=== PATIENT | male | born 1935 | race Caucasian/White ===

== ENCOUNTER 2017-05-02 15:44 | Inpatient (IN) | payer OTHER, MEDICARE ==
[~2017-05-02] VITALS: Ht 144.8 cm; Wt 63.5 kg
[~2017-05-02 15:44] MED LIST: ALBU-136 IH; ALBU4TAB59 PO; ASPI-1093 PO; AZIT250T3 PO; BECL0.089 INH; BEN50 PO; CALC-744 PO; CHOL20001 PO; CYAN500T8 PO; DEXL60EC5 PO; FINA5TAB1 PO; FURO-570 PO; MONT10TA35 PO; POTA8TER12 PO; SIMV20TA1 PO; SPIMDI INH; TAMS0.4C96 PO; [UNRECOGNIZED DRUG - CODE] PO; [UNRECOGNIZED DRUG - CODE] PO
[2017-05-02 15:49] VITALS: BP 125/42
--- NOTE | 2017-05-02 16:23 | NUR ---
PT PLACED IN OVERFLOW CHAIR.
--- NOTE | 2017-05-02 17:14 | NUR ---
Pt ambulated to bed 5 using a walker.
--- NOTE | 2017-05-02 17:20 | NUR ---
PATIENT PRESENTS TO ED WITH SOB COUGH ANTERIOR CHEST WALL PAIN . PT STATES WHEN HE COUGHS HIS CHEST HURTS . DENIES N/V/D; SKIN IS PINK/WARM/DRY; AAOX4 WITH EVEN AND STEADY GAIT;CRACKLES; HR EVEN AND REGULAR; THIS TIME; PATIENT STATES PAIN OF 0/10 AT THIS TIME; VSS; PATIENT POSITIONED FOR COMFORT; HOB ELEVATED; BEDRAILS UP X2; BED DOWN. ER MD MADE AWARE OF PT STATUS.
--- NOTE | 2017-05-02 17:21 | NUR ---
Patient being evaluated by Dr. Tena at bedside.
--- NOTE | 2017-05-02 17:32 | NUR ---
RT called for treatment.
[2017-05-02] MEDS ORDERED: methylPREDNISolone SS 125 MG in WATER STERILE 2 ML IV ONE (17:35)
[2017-05-02] MEDS ORDERED: NACL 0.9% 1,000 ML IV ONE (17:35)
[2017-05-02] MEDS ORDERED: ALBUTEROL SULFATE/IPRATROPIU 3 ML SOL IH ONE (17:35)
[2017-05-02] MEDS ORDERED: CLINDAMYCIN 900 MG in DEXTROSE 5% 100 ML IV ONE (17:55)
[2017-05-02] MEDS ORDERED: PIPERACILLIN/TAZOBACTAM 3.375 GM in DEXTROSE 5% 50 ML IV ONE (17:55)
[2017-05-02] MEDS ORDERED: PIPERACILLIN/TAZOBACTAM 3.375 GM VIAL IV ONE (18:03)
[2017-05-02] MEDS ORDERED: CLINDAMYCIN 900 MG/6 ML VIAL IV ONE (18:04)
[2017-05-02 18:45] LABS: BASOPHILS # (AUTO) 0.3 K/uL (0.00-0.22); EOSINOPHILS # (AUTO) 0.5 K/uL (0-0.4); EOSINOPHILS % (AUTO) 5.4 % (0.0-4.0); LYMPHOCYTES # (AUTO) 2.3 K/uL (2.0-11.5); LYMPHOCYTES % (AUTO) 27.2 % (20.5-51.1); MEAN CORPUSCULAR HEMOGLOBIN 24 pg (27-31); MEAN CORPUSCULAR HGB CONC 32 g/dL (33-37); MEAN CORPUSCULAR VOLUME 77 fL (80-94); MONOCYTES # (AUTO) 0.9 K/uL (0.8-1.0); MONOCYTES % (AUTO) 10.6 % (1.7-9.3); NEUTROPHILS # (AUTO) 4.4 K/uL (1.8-7.7); PLATELET COUNT (AUTO) 324 K/uL (140-450); RED BLOOD CELL COUNT(AUTO) 5.34 MIL/uL (4.20-6.10); RED CELL DISTRIBUTION WIDTH 20.8 % (11.6-13.7); WHITE BLOOD COUNT (AUTO) 8.4 K/uL (4.8-10.8)
[2017-05-02 18:57] LABS: ANION GAP 12.1 (8-16); CALCIUM 8.6 mg/dL (8.5-10.1); CARBON DIOXIDE 29.2 mmol/L (21-32); CHLORIDE 102 mmol/L (98-107); GLUCOSE 90 mg/dL (74-106); POTASSIUM 3.3 mmol/L (3.5-5.1); SODIUM SERUM 140 mmol/L (136-145); UREA NITROGEN, BLOOD 16 mg/dL (7-18)
[2017-05-02] MEDS ORDERED: ACETAMINOPHEN 325 MG TAB PO PRN (19:05)
[2017-05-02] MEDS ORDERED: LORazepam 2 MG/ML VIAL IVP PRN (19:05)
[2017-05-02] MEDS ORDERED: ONDANSETRON 4 MG/2 ML VIAL IVP PRN (19:05)
[2017-05-02] MEDS ORDERED: AZITHROMYCIN 500 MG in DEXTROSE 5% 250 ML IV SCH (19:05)
[2017-05-02] MEDS ORDERED: MORPHINE SULFATE 2 MG/ML SYR IVP PRN (19:05)
[2017-05-02] MEDS ORDERED: ALBUTEROL 0.083% 2.5 MG/3 ML NEBU IH PRN (19:05)
[2017-05-02 19:11] LABS: ALANINE AMINOTRANSFERASE 27 U/L (12-78); ALBUMIN 3.4 g/dL (3.4-5.0); ALKALINE PHOSPHATASE 87 U/L (46-116); ASPARTATE AMINOTRANSFERASE 32 U/L (15-37); TOTAL BILIRUBIN 0.3 mg/dL (0.0-1.0)
--- NOTE | 2017-05-02 19:21 | NUR ---
Pt transferred to Tele via ROXANA REPORT GIVEN DENA HERNANDEZ
--- NOTE | 2017-05-02 19:25 | NUR ---
Admitted from [facility] with chief complaint of DIFFICULTY BREATHING STARTED THIS MORNING. AN 82 y/o, Male, Appropriate. ALERT AWAKE ORIENTED X4. GREEK-SPEAKING ONLY BUT DAUGHTER IS PRESENT AT BEDSIDE DURING ADMISSION WHO CAN UNDERSTAND AND SPEAK AZERI WELL. INITIAL ASSESSMENT DONE. NO S/S OF RESPIRATORY DISTRESS OR SOB NOTED. NO C/O PAIN OR ANY DISCOMFORT AT THIS TIME. SKIN IS INTACT CLEAN DRY AND WARM TO TOUCH. PLAN OF CARE REVIEWED TO PT AND FAMILY AT BEDSIDE AND VERBALIZED UNDERSTANDING AND NEED TO BE REINFORCED. oriented to call light, bed, phone,television, bathroom, smoking policy, visiting hours, procedures, ID bracelet on. Belongings list checked. CALL LIGHT WITHIN REACH. WILL CONTINUE TO MONITOR.
[2017-05-02 19:41] LABS: PARTIAL THROMBOPLASTIN TIME 30.4 secs (22-35.6); PROTHROMBIN TIME 10.4 secs (10.8-13.4)
[2017-05-02] MEDS: NACL 0.9% 1,000 ML IV SCH (20:04)
[2017-05-02] MEDS ORDERED: cefTRIAXone 1,000 MG VIAL ONE (20:07)
[2017-05-02] MEDS ORDERED: AZITHROMYCIN 500 MG INJ VIAL IV ONE (20:08)
--- NOTE | 2017-05-02 23:56 | NUR ---
2300 MARY FERNANDES COLLECTED SPUTUM FROM PATIENT AND SENT IT TO LAB
[2017-05-03] VITALS: BP 122/71
--- NOTE | 2017-05-03 00:20 | NUR ---
PT IS SLEEPING RIGHT NOW BUT EASILY AROUSABLE. NO S/S OF ANY DISCOMFORT AT THIS TIME. ALL NEEDS ARE ATTENDED. CALL LIGHT WITHIN REACH. WILL CONTINUE TO MONITOR.
[2017-05-03] MEDS: ALBUTEROL 0.083% 2.5 MG/3 ML NEBU IH SCH ×4 (01:03→19:55)
[2017-05-03 04:00] VITALS: BP 126/75
--- NOTE | 2017-05-03 05:15 | NUR ---
AM CARE DONE BY HIMSELF. BED LINEN CHANGED. INSTRUCTED PT TO REPOSITION. KEPT CLEAN AND DRY. CALL LIGHT WITHIN REACH. WILL CONTINUE TO MONITOR.
[2017-05-03 07:13] LABS: BASOPHILS % (AUTO) 0.2 % (0.0-2.0); EOSINOPHILS # (AUTO) 0.1 K/uL (0-0.4); EOSINOPHILS % (AUTO) 0.9 % (0.0-4.0); HEMATOCRIT 40.9 % (36-52); HEMOGLOBIN 13.1 g/dL (12.0-18.0); LYMPHOCYTES # (AUTO) 0.9 K/uL (2.0-11.5); LYMPHOCYTES % (AUTO) 13.9 % (20.5-51.1); MEAN CORPUSCULAR HEMOGLOBIN 25 pg (27-31); MEAN CORPUSCULAR HGB CONC 32 g/dL (33-37); MEAN CORPUSCULAR VOLUME 77 fL (80-94); MONOCYTES # (AUTO) 0.1 K/uL (0.8-1.0); MONOCYTES % (AUTO) 0.8 % (1.7-9.3); NEUTROPHILS # (AUTO) 5.2 K/uL (1.8-7.7); NEUTROPHILS % (AUTO) 84.2 % (42.2-75.2); PLATELET COUNT (AUTO) 312 K/uL (140-450); RED BLOOD CELL COUNT(AUTO) 5.32 MIL/uL (4.20-6.10); WHITE BLOOD COUNT (AUTO) 6.3 K/uL (4.8-10.8)
--- NOTE | 2017-05-03 07:23 | NUR ---
PT HAS NO S/S OF ANY DISCOMFORT. PLAN OF CARE ENDORSE TO STEPHANIE HERNANDEZ AT BEDSIDE FOR CONTINUITY OF CARE.
[2017-05-03 07:24] LABS: ANION GAP 13.4 (8-16); CALCIUM 8.6 mg/dL (8.5-10.1); CARBON DIOXIDE 26.3 mmol/L (21-32); CHLORIDE 104 mmol/L (98-107); GLUCOSE 138 mg/dL (74-106); POTASSIUM 3.7 mmol/L (3.5-5.1); SODIUM SERUM 140 mmol/L (136-145); UREA NITROGEN, BLOOD 15 mg/dL (7-18)
[2017-05-03] MEDS: NACL 0.9% 1,000 ML IV SCH ×2 (07:31→20:01)
[2017-05-03 08:00] VITALS: BP 132/71
--- NOTE | 2017-05-03 08:00 | NUR ---
Pt in room in bed awake @ this time pt has no c/o any pain or discomfort @ this time call light in reach bed in low position wheels locked @ this time nurse continue to monitor pt
--- NOTE | 2017-05-03 08:00 | NUR ---
Patient's Plan of Care was discussed and reviewed with ERIKA BEAL SPARK
--- NOTE | 2017-05-03 09:58 | NUR ---
PATIENT HAS BEEN SCREENED AND CATEGORIZED HIGH NUTRITION RISK. PATIENT WILL BE SEEN WITHIN 1-2 DAYS OF ADMISSION. 05/03/17-05/04/[address]
--- NOTE | 2017-05-03 10:00 | NUR ---
Pt continue to rest @ this time no c/o any discomfort nurse continue to monitor pt
[2017-05-03] MEDS: ENOXAPARIN 40 MG/0.4 ML SYR SUBQ SCH (10:35)
[2017-05-03 12:11] VITALS: BP 121/70
--- NOTE | 2017-05-03 12:30 | NUR ---
FAXED INITIAL REVIEW TO [facility] [phone] PHONE ASHLEY [phone]
[2017-05-03 16:16] VITALS: BP 113/57
--- NOTE | 2017-05-03 16:30 | NUR ---
Pt remain in room in bed resting @ this time no c/o any pain or discomfort this shift all ordereds carried out as ordered no falls or injuries this shift
--- NOTE | 2017-05-03 19:30 | NUR ---
RECEIVED FROM AM RN IN EDGE OF BED SITTING . ABLE TO VERBALIZE NEEDS WELL IN [place]. GOOD AFFECT. CARDIAC MONITORING. NSR 75. AFEBRILE. IVF SITE TO LFA #22 INTACT AND NO INFILTRATION. PT. CARE PLANS FOR THE NIGHT DISCUSSED WITH HIM AND CALL LIGHT WITH IN REACH. RESPIRATORY THERAPIST IN HERE AND HELPED HIM TO LAY DOWN IN BED TO START BREATHING TREATMENT. SUPPLIED WITH NEW SPUTUM CUP FOR COLLECTION. EXPLAINED THAT WE NEED MORE. "OK"
[2017-05-03 20:50] VITALS: BP 108/57
[2017-05-03] MEDS ORDERED: AZITHROMYCIN 500 MG in DEXTROSE 5% 250 ML IV SCH (21:00)
--- NOTE | 2017-05-03 21:42 | NUR ---
SPUTUM SPECIMEN RE-COLLECTED AND SENT TO LABORATORY. COMPLAINED OF NO BM FOR 3 DAYS NOW. GAVE PRUNE JUICE FOR NOW. ABLE TO VERBALIZE NEEDS WELL.
[2017-05-04 00:35] VITALS: BP 116/58
--- NOTE | 2017-05-04 00:41 | NUR ---
DAUGHTER AT BEDSIDE WATCHING OVER HIM .SLEEPING WELL AT THIS TIME. CALL LIGHT WITH IN REACH. NO SOB. NO RESTLESSNESS NOTED. STILL COUGHING INTERMITTENTLY . CARDIAC MONITORING.
[2017-05-04] MEDS: ALBUTEROL 0.083% 2.5 MG/3 ML NEBU IH SCH ×3 (01:47→11:44)
--- NOTE | 2017-05-04 02:40 | NUR ---
SLEEPING WELL. NO COMPLAINTS DONE. DAUGHTER AT BEDSIDE.
--- NOTE | 2017-05-04 04:00 | NUR ---
SLEEPING WELL. NO COMPLAINTS .
[2017-05-04 05:32] VITALS: BP 121/57
[2017-05-04 06:49] LABS: ANION GAP 12.9 (8-16); CALCIUM 8.2 mg/dL (8.5-10.1); CARBON DIOXIDE 25.2 mmol/L (21-32); CHLORIDE 110 mmol/L (98-107); CREATININE 0.9 mg/dL (0.6-1.3); GLUCOSE 87 mg/dL (74-106); POTASSIUM 3.1 mmol/L (3.5-5.1); SODIUM SERUM 145 mmol/L (136-145); UREA NITROGEN, BLOOD 19 mg/dL (7-18)
--- NOTE | 2017-05-04 07:14 | NUR ---
HHN TX GIVEN. GAVE PT SPUTUM CUB AND EXPLAINED TO PT. FAMILY MEMBER AT BEDSIDE. NO SOB OR DISTRESS NOTED. WILL CONTINUE TO MONITOR.
--- NOTE | 2017-05-04 07:15 | NUR ---
RECEIVED FROM SUGEY RN IN STABLE CONDITION. ON ROOM AIR. LEFT HAND PERIPHERAL IV PATENT AND INTACT. ALERT AND ORIENTED TO PERSON AND PLACE. UZBEK SPEAKING ONLY. ABLE TO MAKE HIS NEEDS KNOWN. CALL LIGHT WITHIN REACH. WILL CONTINUE TO MONITOR PATIENT.
--- NOTE | 2017-05-04 07:17 | NUR ---
ENDORSED TO THE NEXT RN FOR CONTINUITY OF CARE. AWAKE AND ALERT. DUGHTER AT BEDSIDE. NO SOB. AFEBRILE. TELEMETRY MONITORING.
[2017-05-04 08:02] VITALS: BP 126/82
[2017-05-04] MEDS: NACL 0.9% 1,000 ML IV SCH (09:34)
[2017-05-04] MEDS: ENOXAPARIN 40 MG/0.4 ML SYR SUBQ SCH (09:35)
--- NOTE | 2017-05-04 10:46 | NUR ---
PATIENT IS RESTING COMFORTABLY AT THIS TIME.
--- NOTE | 2017-05-04 11:47 | NUR ---
PATIENT DESATURATED AT THIS TIME AT 85% ROOM AIR. PATIENT LAYS FLAT ON BED. NOT IN DISTRESS. RT MADE AWARE. PULLED UP ON SITTING POSITION, O2 SAT WENT UP TO 94% ON ROOM AIR.
[2017-05-04 11:58] VITALS: BP 116/64
--- NOTE | 2017-05-04 12:23 | NUR ---
FAXED CONCURRENT REVIEW TO [facility] [phone] PHONE ASHLEY [phone]
[2017-05-04 13:27] VITALS: BP 116/64
[2017-05-04] MEDS ORDERED: POTASSIUM CHLORIDE 20% 40 MEQ/15 ML UDC PO SCH (13:48)
--- NOTE | 2017-05-04 13:53 | NUR ---
05/04/17 RD INITIAL ASSESSMENT COMPLETED PLEASE REFER TO NUTRITION ASSESSMENT UNDER CARE ACTIVITY FOR ESTIMATED NUTRITIONAL NEEDS. 1. CONTINUE REGULAR, PUREED DIET 2. RD TO FOLLOW-UP 3-5 DAYS; MODERATE RISK HUYEN GONZALEZ RD
--- NOTE | 2017-05-04 15:18 | NUR ---
D/C PATIENT IN STABLE CONDITION. IV PULLED OUT, TIP INTACT. ARM BAND REMOVED. D/C INSTRUCTIONS GIVEN TO PATIENT'S DAUGHTER AND ALL D/C PAPER WORKS WERE SIGNED. WHEELED OUT TO FRONT LOBBY. D/C VIA PRIVATE AUTO.
== END 2017-05-04 15:10 | disposition home or self-care (01) | DRG 140 ==
LOC: MED 15:44 → MTU 19:06
PROVIDERS: ADMIT Hospitalist; ATTEND Hospitalist
DX: J44.0 Chronic obstructive pulmonary disease with (acute) lower respiratory infection (principal); J18.9 Pneumonia, unspecified organism; R13.10 Dysphagia, unspecified; J98.4 Other disorders of lung; J44.1 Chronic obstructive pulmonary disease with (acute) exacerbation; E78.5 Hyperlipidemia, unspecified; E87.6 Hypokalemia; K21.9 Gastro-esophageal reflux disease without esophagitis; N40.0 Benign prostatic hyperplasia without lower urinary tract symptoms; I10 Essential (primary) hypertension; Z87.891 Personal history of nicotine dependence; Z87.11 Personal history of peptic ulcer disease; Z90.49 Acquired absence of other specified parts of digestive tract; Z79.899 Other long term (current) drug therapy
CPT/HCPCS: 36415; 71010; 74220; 80048; 80053; 83735; 84484; 85025; 85610; 85730; 87040; 87070; 87081; 87205; 93005; 94640; 96365; 96375; 99285; J0456; J0696; J1650; J2543; J2930; J3490; J7030; J7060; J7613; J7620

== ENCOUNTER 2017-09-17 20:36 | Emergency (ER) | payer MEDICARE, OTHER ==
[~2017-09-17] VITALS: Ht 144.8 cm; Wt 66.3 kg
[~2017-09-17 20:36] MED LIST changes: +ALBU4TAB21 PO; -ALBU4TAB59 PO; -AZIT250T3 PO; +DEXL60EC PO; -DEXL60EC5 PO
[2017-09-17 20:47] VITALS: BP 131/80
--- NOTE | 2017-09-17 21:54 | NUR ---
PT TAKEN TO BED 12
--- NOTE | 2017-09-17 21:56 | NUR ---
82/M BIB DAUGHTER C/O 08/30 SHARP PAIN TO BACK, CONSTANT, SEVERE X 3 DAYS. PT WAS SEEN AT [facility] 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 RX FOR TYLENOL AND IBUPROFEN, BUT WAS NOT FILLED. PT REPORTS HE TOOK IBUPROFEN OTC AT 1400 WITH NO RELIEF. BACK IS TENDER TO TOUCH. NO ACUTE RESPIRATORY DISTRESS NOTED AT THIS TIME. PT POSITIONED FOR COMFORT. ER MD MADE AWARE OF PT STATUS.
--- NOTE | 2017-09-17 22:19 | NUR ---
Dr. Betancourt evaluating patient at bedside.
[2017-09-17] MEDS ORDERED: MORPHINE SULFATE 10 MG/ML SYR IM ONE (22:25)
--- NOTE | 2017-09-17 22:25 | NUR ---
PT PLACE ON BEDSIDE MONITORING WITH CONTINUOUS PULSE OXIMETRY
--- NOTE | 2017-09-17 23:34 | NUR ---
PT RESTING COMFORTABLY, VSS, REPORTS 2/10 PAIN TO BACK. ALL NEEDS MET AT THIS TIME
--- NOTE | 2017-09-18 | NUR ---
Patient discharged with v/s stable. Written and verbal after care instructions given and explained BY DR FERNANDEZ. Patient alert, oriented and verbalized understanding of instructions. Wheel Chair Assisted with MILLICENT HERNANDEZ to car. All questions addressed prior to discharge. ID band removed. Patient advised to follow up with PMD. Opportunity to ask questions provided and answered.
[2017-09-18 00:14] VITALS: BP 139/71
== END 2017-09-18 | disposition home or self-care (01) ==
LOC: MED 20:36
DX: M80.88XA Other osteoporosis with current pathological fracture, vertebra(e), initial encounter for fracture (principal); J44.9 Chronic obstructive pulmonary disease, unspecified; K21.9 Gastro-esophageal reflux disease without esophagitis; I10 Essential (primary) hypertension
CPT/HCPCS: 96372; 99283; J2270

== ENCOUNTER 2017-09-21 20:34 | Inpatient (IN) | payer OTHER, MEDICARE ==
[~2017-09-21] VITALS: Ht 149.9 cm; Wt 64.9 kg
--- NOTE | 2017-09-21 20:37 | NUR ---
PT TAKEN TO BED 12
[2017-09-21 20:41] VITALS: BP 128/96
--- NOTE | 2017-09-21 20:44 | NUR ---
Patient being evaluated by physician at bedside , WITH ORDERS AND CARRIED OUT.
[2017-09-21] MEDS ORDERED: NACL 0.9% 1,000 ML IV ONE (20:45)
[2017-09-21] MEDS ORDERED: fentaNYL 0.05 MG/ML VIAL IVP ONE (20:55)
--- NOTE | 2017-09-21 20:55 | NUR ---
BIBA C/O LOW BACK PAIN, S/P FALL 2-3 DAYS AGO. PATIENT ALERT , AWAKE
--- NOTE | 2017-09-21 20:56 | NUR ---
PT TAKEN TO RADIOLOGY
--- NOTE | 2017-09-21 21:07 | NUR ---
PT RETURN FROM RADIOLOGY
[2017-09-21 21:25] LABS: HEMOGLOBIN 13.5 g/dL (12.0-18.0); MEAN CORPUSCULAR HEMOGLOBIN 27 pg (27-31); MEAN CORPUSCULAR HGB CONC 33 g/dL (33-37); MEAN CORPUSCULAR VOLUME 81 fL (80-94); PLATELET COUNT (AUTO) 408 K/uL (140-450); RED BLOOD CELL COUNT(AUTO) 5.05 MIL/uL (4.20-6.10); RED CELL DISTRIBUTION WIDTH 20.6 % (11.6-13.7); WHITE BLOOD COUNT (AUTO) 18.5 K/uL (4.8-10.8)
[2017-09-21 21:41] LABS: PROTHROMBIN TIME 10.1 secs (10.8-13.4)
[2017-09-21 21:42] LABS: EOSINOPHILS % (MANUAL) 1 % (0-4); LYMPHOCYTES % (MANUAL) 4 % (20-46); MONOCYTES % (MANUAL) 4 % (5-12); PROMYELOCYTES % 2 % (0-0)
[2017-09-21 21:43] LABS: ALBUMIN 2.8 g/dL (3.4-5.0); ANION GAP 12.4 (8-16); ASPARTATE AMINOTRANSFERASE 33 U/L (15-37); CARBON DIOXIDE 27.7 mmol/L (21-32); CHLORIDE 91 mmol/L (98-107); CREATININE 0.9 mg/dL (0.7-1.3); GLUCOSE 161 mg/dL (74-106); POTASSIUM 4.1 mmol/L (3.5-5.1); SODIUM SERUM 127 mmol/L (136-145); TOTAL BILIRUBIN 0.6 mg/dL (0.0-1.0); UREA NITROGEN, BLOOD 17 mg/dL (7-18)
[2017-09-21] MEDS ORDERED: PIPERACILLIN/TAZOBACTAM 3.375 GM in DEXTROSE 5% 50 ML IV ONE (21:50)
--- NOTE | 2017-09-21 22:00 | NUR ---
PER ER MD ORDERS WITT 16 FR INSERTED. PT TOLERATED WELL. 1400ML OUTPUT NOTED. ER MD MADE AWARE.
--- NOTE | 2017-09-21 22:00 | NUR ---
ALL RESULTS BACK AND NOTED BY ERMD AND FOR ADMISSION
[2017-09-21] MEDS ORDERED: PIPERACILLIN/TAZOBACTAM 3.375 GM VIAL IV ONE (22:06)
[2017-09-21 22:07] LABS: APPEARANCE,URINE CLEAR (CLEAR); BILIRUBIN,URINE NEGATIVE (NEGATIVE); BLOOD, URINE NEGATIVE (NEGATIVE); COLOR,URINE YELLOW (YELLOW); LEUKOCYTE ESTERASE ,URINE NEGATIVE (NEGATIVE); NITRITE, URINE NEGATIVE (NEGATIVE); UGLUCOSE NEGATIVE (NEGATIVE)
[2017-09-21] MEDS ORDERED: ONDANSETRON 4 MG/2 ML VIAL IM/IVP PRN (22:10)
[2017-09-21] MEDS ORDERED: HYDROcodone/APAP 7.5/325 MG 1 TAB PO PRN (22:10)
[2017-09-21] MEDS ORDERED: MORPHINE SULFATE 2 MG/ML SYR IVP PRN ×2 (22:10→22:25)
[2017-09-21] MEDS ORDERED: DOCUSATE SODIUM 100 MG GELCAP PO PRN (22:10)
[2017-09-21] MEDS ORDERED: ACETAMINOPHEN 325 MG TAB PO PRN ×2 (22:10→22:25)
[2017-09-21] MEDS ORDERED: TRAM50TA1 PO (22:18)
[2017-09-21] MEDS ORDERED: NACL 0.9% 1,000 ML IV SCH (22:24)
[2017-09-21] MEDS ORDERED: ONDANSETRON 4 MG/2 ML VIAL IVP PRN (22:25)
[2017-09-21] MEDS ORDERED: AZITHROMYCIN 500 MG in DEXTROSE 5% 250 ML IV SCH (22:25)
[2017-09-21] MEDS ORDERED: LORazepam 2 MG/ML VIAL IVP PRN (22:25)
--- NOTE | 2017-09-21 22:27 | NUR ---
Patient will be admitted to care of DR. TELLEZ. Admited to TELEMETRY. Will go to room 122 B Belongings list completed.
--- NOTE | 2017-09-21 22:33 | NUR ---
REPORT GIVEN TO [facility] RN.
--- NOTE | 2017-09-21 22:45 | NUR ---
ADMITTED PATIENT TO THE TELE UNIT, PATIENT AWAKE ALERT ORIENTED TO PERSON, PLACE AND YEAR. ROMANSH SPEAKING ONLY, AND DAUGHTER AT BEDSIDE. TELE MONITOR PLACED ON PATIENT, IV PATENT AND INTACT. WITT CATHETER IN PLACE, DRAINING URINE BY GRAVITY. CALL LIGHT WITHIN REACH, SAFETY MEASURE ENSURED, WILL CONTINUE TO MONITOR.
[2017-09-21 23:00] VITALS: BP 137/71
[2017-09-21] MEDS ORDERED: cefTRIAXone 500 MG VIAL ONE (23:15)
[2017-09-21] MEDS ORDERED: AZITHROMYCIN 500 MG INJ VIAL IV ONE (23:19)
--- NOTE | 2017-09-21 23:37 | NUR ---
ROCEPHIN 1000MG GIVEN ORDERED. PATIENT TOLERATED WELL. WILL CONTINUE TO MONITOR.
--- NOTE | 2017-09-22 00:30 | NUR ---
PATIENT SPEAKS SERBIAN ONLY, TAPPER BALANCE WHEEL SCREW HOLE [id number] USED WHEN ADMISSION QUESTIONS WERE ASKED, HOWEVER, PATIENT WAS FORGETFUL AND UNABLE TO ANSWER QUESTIONS PROPERLY, HIS DAUGHTER WAS THE PRIMARY CAREGIVER AND OFFERED TO ANSWER QUESTIONS WITH PATIENT'S PERMISSION. INFORMATION WAS COLLECTED FROM THE PATIENT AND THE DAUGHTER.
[2017-09-22] MEDS: HYDROcodone/APAP 5/325 MG 1 TAB TAB PO PRN ×2 (00:56→18:08)
--- NOTE | 2017-09-22 03:26 | NUR ---
PATIENT IS SLEEPING AT THIS TIME. NO S/S OF ACUTE DISTRESS NOTED, RESPIRATION EVEN AND UNLABORED, CALL LIGHT WITHIN REACH, SAFETY MEASURE ENSURED, WILL CONTINUE TO MONITOR.
--- NOTE | 2017-09-22 04:32 | NUR ---
PATIENT IS MED-SURG.
[2017-09-22] MEDS: HYDROmorphone 1 MG/ML AMP IVP PRN ×2 (05:12→14:11)
--- NOTE | 2017-09-22 05:15 | NUR ---
PATIENT STATED LOWER BACK PAIN 04/30, BP 113/61, HR 65, DILAUDID 1MG GIVEN ORDERED.
[2017-09-22] MEDS ORDERED: INFLUENZA VIRUS VACCINE QUAD 0.5 ML SYR IMVAC PRN (05:30)
[2017-09-22] MEDS ORDERED: PNEUMOCOCCAL VACCINE 23 MCG/0.5 ML VIAL IMVAC PRN (05:30)
[2017-09-22] MEDS ORDERED: MILD SOAP AND WATER TP PRN (06:05)
[2017-09-22] MEDS ORDERED: Z-GUARD PASTE TP PRN (06:05)
[2017-09-22 06:12] LABS: BASOPHILS # (AUTO) 0.2 K/uL (0.00-0.22); BASOPHILS % (AUTO) 1.8 % (0.0-2.0); EOSINOPHILS # (AUTO) 0.2 K/uL (0-0.4); EOSINOPHILS % (AUTO) 1.1 % (0.0-4.0); HEMATOCRIT 35.6 % (36-52); HEMOGLOBIN 12.1 g/dL (12.0-18.0); LYMPHOCYTES # (AUTO) 0.9 K/uL (2.0-11.5); LYMPHOCYTES % (AUTO) 6.7 % (20.5-51.1); MEAN CORPUSCULAR HEMOGLOBIN 28 pg (27-31); MEAN CORPUSCULAR HGB CONC 34 g/dL (33-37); MEAN CORPUSCULAR VOLUME 82 fL (80-94); MONOCYTES # (AUTO) 1.7 K/uL (0.8-1.0); NEUTROPHILS # (AUTO) 10.8 K/uL (1.8-7.7); NEUTROPHILS % (AUTO) 78.4 % (42.2-75.2); PLATELET COUNT (AUTO) 352 K/uL (140-450); RED BLOOD CELL COUNT(AUTO) 4.38 MIL/uL (4.20-6.10); RED CELL DISTRIBUTION WIDTH 20.5 % (11.6-13.7)
[2017-09-22 06:38] LABS: ANION GAP 8.4 (8-16); CARBON DIOXIDE 25.5 mmol/L (21-32); CHLORIDE 97 mmol/L (98-107); CREATININE 0.7 mg/dL (0.7-1.3); GLUCOSE 102 mg/dL (74-106); POTASSIUM 3.9 mmol/L (3.5-5.1); SODIUM SERUM 127 mmol/L (136-145); UREA NITROGEN, BLOOD 13 mg/dL (7-18)
--- NOTE | 2017-09-22 06:53 | NUR ---
PATIENT IS SLEEPING, EASY TO AROUSE, NO S/S OF ACUTE DISTRESS NOTED, RESPIRATION EVEN AND UNLABORED, CALL LIGHT WITHIN REACH, SAFETY MEASURE ENSURED, WILL CONTINUE TO MONITOR.
--- NOTE | 2017-09-22 07:20 | NUR ---
ENDORSED PLAN OF CARE TO DAY MARY SAMUEL, PATIENT IS IN STABLE CONDITION. NO S/S OF DISTRESS.
[2017-09-22 07:22] LABS: WHITE BLOOD COUNT (AUTO) 13.8 K/uL (4.8-10.8)
--- NOTE | 2017-09-22 07:23 | NUR ---
RECEIVED PT IN BED. ASLEEP. AROUSABLE TO VOICE. ALERT ORIENTEDX4. NO SOB NOTED. DENIES ANY PAIN PAIN OR DISCOMFORT AT THIS TIME. NO SIGNS AND SYMPTOMS OF ACUTE PAIN OR DISCOMFORT NOTED AT THIS TIME. PT ON BEDREST. WITT CATHETER IN PLACE, DRAINING CLEAR YELLOW URINE. SAFETY PRECAUTION IN PLACE. CALL LIGHT WITHIN REACH.
[2017-09-22 08:00] VITALS: BP 144/70
--- NOTE | 2017-09-22 08:04 | NUR ---
DR. CAO MADE AWARE OF SODIUM LEVEL STILL LOW AT 127, PT'S LAST BOWEL MOVEMENT SEP 17, 2017, AND NOT TOLERATING WELL REGULAR DIET DUE TO PT DOES NOT HAVE TEETH. WITH ORDERS MADE AND CARRIED OUT TORB.
[2017-09-22] MEDS: DOCUSATE SODIUM 100 MG GELCAP PO SCH ×2 (08:18→21:11)
[2017-09-22] MEDS: POLYETHYLENE GLYCOL 17 GM/PKT PO PRN (08:18)
[2017-09-22] MEDS: ENOXAPARIN 40 MG/0.4 ML SYR SUBQ SCH (08:18)
[2017-09-22] MEDS: NACL 0.9% 1,000 ML IV SCH ×2 (09:00→10:54)
--- NOTE | 2017-09-22 09:05 | NUR ---
PATIENT HAS BEEN SCREENED AND CATEGORIZED HIGH NUTRITION RISK. PATIENT WILL BE SEEN WITHIN 1-2 DAYS OF ADMISSION. 09/22/17 -09/23/[address]
--- NOTE | 2017-09-22 09:10 | NUR ---
WOUND CARE EVALUATION NOTE: REASON FOR EVALUATION: SKIN RASH COMPLETE SKIN ASSESSMENT DONE ON THIS 82 Y/O MALE PATIENT FROM [facility] TO [facility], WITH INITIAL DIAGNOSIS OF LOWER BACK PAIN AND RIGHT KNEE PAIN. NO SIGNIFICANT PAST MEDICAL HISTORY. ALL ABOVE INFORMATION WAS OBTAINED FROM THE ADMISSION H&P. LABS ARE WBC 13.8, H/H 12.1/35.6, GLUCOSE 102, ALBUMIN 2.8, PT/INR 10.1/1.0 AND PTT 31.9. CURRENT MEDS INCLUDE ARITHROMYCIN,CEFTRIAXONE, ENOXAPARIN, ALBUTEROL AND HYDROMORPHONE . PATIENT IS AWAKE, ORIENTED TO PERSON, PLACE, DATE AND TIME. SKIN WARM TO TOUCH WNL, TOENAILS ARE SHORT AND THICKENED, FUNGALLY LOOKING, NO HAIR GROWTH, BLE ARE DRY AND FLAKY, BILATERAL PEDAL PULSES PRESENT. FC 16FR PATENT AND INTACT TO CLEAR YELLOW COLORED URINE IN MODERATE AMOUNT. INITIAL PLAN OF CARE DISCUSSED WITH PRIMARY RN INTEGUMENTARY: UMBILICAL HERNIA WITH OLD HEALED SCAR BELOW UMBILICUS BLE - DRY AND FLAKY COCCYX AND PERIANALS FUNGAL LIKE RASHES 4X3 CM RECOMMENDATIONS: -CLEANSE COCCYX AND PERIANALS FUNGAL LIKE RASHES WITH SOAP AND WATER , PAT DRY AND APPLY ANTIFUNGAL CREAM QD AND JANELLE -APPLY HYDRAGUARD TO BLE QD AND BOILER COVERER -TURN AND REPOSITION PATIENT Q 2H -OFFLOAD BILATERAL HEELS BY PLACING PILLOWS UNDER CALVES AT ALL TIMES, UNLESS OTHERWISE CONTRAINDICATED -PRESSURE REDISTRIBUTION SURFACE THERAPY -KEEP SKIN CLEAN AND DRY AT ALL TIMES. RECOMMENDATIONS DISCUSSED WITH PRIMARY RN WILL FOLLOW UP PATIENT Q7-10 DAY AND PRN. PLEASE CONTACT WOUND CARE NURSE FOR ANY CONCERNS, QUESTIONS AND CHANGES IN SKIN CONDITION.
--- NOTE | 2017-09-22 11:23 | NUR ---
CM NOTE INITIAL REVIEW FAXED TO [facility] [phone] TAYLER RAMIREZ PH# [phone] RECEIVED A CALL FROM [facility] PH# [phone] AND SHE SAID THAT [facility] IS FOLLOWING THIS PATIENT FOR NURSING
[2017-09-22] MEDS: ALBUTEROL 0.083% 2.5 MG/3 ML NEBU INH PRN ×2 (11:26→18:54)
[2017-09-22] MEDS ORDERED: Z-GUARD PASTE TP SCH (13:00)
[2017-09-22] MEDS: HYDRAGUARD CREAM TP SCH (13:51)
[2017-09-22] MEDS: MILD SOAP AND WATER TP SCH (13:52)
[2017-09-22] MEDS: NYSTATIN/TRIAMCINOLONE CRM 15 GM TUBE TP SCH (13:52)
--- NOTE | 2017-09-22 14:10 | NUR ---
DAUGHTER AT BEDSIDE. PER DAUGHTER PT COMPLAINS OF BACK PAIN /. AND WOULD WANT FAST RELIEF MEDICATION FOR SEVERE PAIN. EXPLAINED THAT PT HAS 2 ORDERED PAIN MED ONE IS PO AND THE OTHER ONE IS IV. AND IV WORKS FASTER THAN PO. MEDICATED PRN ORDERED.
[2017-09-22 15:51] VITALS: BP 109/53
[2017-09-22 18:04] VITALS: BP 120/62
--- NOTE | 2017-09-22 18:09 | NUR ---
DAUGHTER AT BEDSIDE ASSISTING PT TO EAT. PUREE DIET TOLERATED WELL.
--- NOTE | 2017-09-22 18:41 | NUR ---
PT KEPT CLEAN, DRY AND COMFORTABLE, NEEDS ATTENDED. WILL ENDORSE TO NEXT SHIFT, PT ON STABLE CONDITION, FOR CONTINUITY OF CARE. NO SOB NOTED. DENIES ANY PAIN OR DISCOMFORT AT THIS TIME. DAUGHTER JUST LEFT.
[2017-09-22] MEDS: ACETYLCYSTEINE 10% (100 MG/ML) 100 MG/ML VIAL INH SCH (18:54)
[2017-09-22] MEDS: BUDESONIDE 0.5 MG/2 ML NEBU INH SCH (18:54)
--- NOTE | 2017-09-22 19:20 | NUR ---
PATIENT REPORT RECEIVED FROM MORNING NURSE. PATIENT IS AWAKE AND ALERT. NO SIGNS AND SYMPTOMS OF DISTRESS NOTED, NO COMPLAINTS OF PAIN AT THIS TIME. IV SITE IS NOTED ON RIGHT AC. WITT CATHETER IN PLACE. BED IN LOWEST POSITION, SIDE RAILS UP AND CALL LIGHT WITHIN REACH. WILL CONTINUE TO MONITOR.
[2017-09-22] MEDS: AZITHROMYCIN 500 MG in DEXTROSE 5% 250 ML IV SCH (21:05)
[2017-09-23] VITALS: BP 110/62
--- NOTE | 2017-09-23 | NUR ---
CHECKED ON PATIENT, PATIENT IS ASLEEP. NO SIGNS AND SYMPTOMS OF DISTRESS NOTED. BED IN LOWEST POSITION, SIDE RAILS UP AND CALL LIGHT WITHIN REACH.
[2017-09-23] MEDS: MILD SOAP AND WATER TP SCH ×2 (01:00→13:05)
--- NOTE | 2017-09-23 03:20 | NUR ---
PATIENT PULLED OUT IV. IV CANNULA INTACT. NEW IV SITE INSERTED ON LEFT FOREARM, GAUGE 22. NEW IV SITE, ASYMPTOMATIC, INTACT, PATENT.
--- NOTE | 2017-09-23 04:00 | NUR ---
CHECKED ON PATIENT, PATIENT IS ASLEEP. NO SIGNS AND SYMPTOMS OF DISTRESS NOTED. BED IN LOWEST POSITION, SIDE RAILS UP AND CALL LIGHT WITHIN REACH.
[2017-09-23 05:45] LABS: HEMATOCRIT 39.7 % (36-52); HEMOGLOBIN 12.9 g/dL (12.0-18.0); MEAN CORPUSCULAR HEMOGLOBIN 27 pg (27-31); MEAN CORPUSCULAR HGB CONC 33 g/dL (33-37); MEAN CORPUSCULAR VOLUME 83 fL (80-94); PLATELET COUNT (AUTO) 424 K/uL (140-450); RED BLOOD CELL COUNT(AUTO) 4.75 MIL/uL (4.20-6.10); RED CELL DISTRIBUTION WIDTH 20.3 % (11.6-13.7); WHITE BLOOD COUNT (AUTO) 17.6 K/uL (4.8-10.8)
[2017-09-23 06:27] LABS: ALBUMIN 2.3 g/dL (3.4-5.0); ASPARTATE AMINOTRANSFERASE 35 U/L (15-37); CARBON DIOXIDE 29.1 mmol/L (21-32); CHLORIDE 97 mmol/L (98-107); CREATININE 0.8 mg/dL (0.7-1.3); GLUCOSE 132 mg/dL (74-106); MAGNESIUM 1.8 mg/dL (1.8-2.4); PHOSPHORUS 2.4 mg/dL (2.5-4.9); POTASSIUM 4.1 mmol/L (3.5-5.1); SODIUM SERUM 131 mmol/L (136-145); TOTAL BILIRUBIN 0.4 mg/dL (0.0-1.0); UREA NITROGEN, BLOOD 12 mg/dL (7-18)
[2017-09-23 07:01] LABS: LYMPHOCYTES % (MANUAL) 10 % (20-46); MONOCYTES % (MANUAL) 5 % (5-12)
[2017-09-23] MEDS: ALBUTEROL 0.083% 2.5 MG/3 ML NEBU INH PRN ×3 (07:08→19:25)
[2017-09-23] MEDS: BUDESONIDE 0.5 MG/2 ML NEBU INH SCH ×2 (07:08→19:25)
[2017-09-23] MEDS: ACETYLCYSTEINE 10% (100 MG/ML) 100 MG/ML VIAL INH SCH ×2 (07:09→19:25)
--- NOTE | 2017-09-23 07:27 | NUR ---
PATIENT REPORT GIVEN AT BEDSIDE TO MORNING NURSE. PATIENT IS IN STABLE CONDITION
--- NOTE | 2017-09-23 07:30 | NUR ---
RECEIVED REPORT FROM POWDER MIXER NURSE PT IS RESTING IN BED, RECEIVING BREATHING TREATMENT AT THIS TIME, PT IS A/OX3, BEDREST, IV IS ON THE LEFT AC, PATENT, INTACT, FLUSHING WELL, PT HAS ERYTHEMA ON HIS BUTTOCKS, WITT CATHETER IS IN PLACE, ABDOMEN IS NOTED TO BE DISTENDED, NO S/S OF RESPIRATORY DISTRESS OR DISCOMFORT NOTED, DISCUSSED PLAN OF CARE WITH PT, PT VERBALIZED UNDERSTANDING, SAFETY/FALL/ASPIRATION PRECAUTIONS ARE IN PLACE, CALL LIGHT WITHIN REACH, WILL CONTINUE TO MONITOR.
[2017-09-23 08:00] VITALS: BP 134/72
[2017-09-23] MEDS: DOCUSATE SODIUM 100 MG GELCAP PO SCH ×2 (08:45→20:40)
--- NOTE | 2017-09-23 08:45 | NUR ---
DUE MEDICATIONS GIVEN PT TOLERATED WELL, CALL LIGHT WITHIN REACH, WILL CONTINUE TO MONITOR.
[2017-09-23] MEDS: ENOXAPARIN 40 MG/0.4 ML SYR SUBQ SCH (08:49)
--- NOTE | 2017-09-23 11:15 | NUR ---
PT IS REPOSITIONED IN BED FOR COMFORT AT THIS TIME.
--- NOTE | 2017-09-23 11:48 | NUR ---
CM NOTE CONCURRENT REVIEW FAXED TO [facility] [phone] TAYLER RAMIREZ PH# [phone]. SPOKE WITH [facility] TAYLER RAMIREZ PH# [phone] AND SHE SAID TO SEND INQUIRY TO [facility] IF PATIENT NEEDS SNF AND FOR TRANSPORT TO SNF AMBULANCE AUTH# [id number]. SPOKE WITH TY OF [facility] PH# [phone] AND SHE SAID THAT THEY CAN TAKE PATIENT IF PATIENT NEEDS TO GO TO SNF.
--- NOTE | 2017-09-23 12:30 | NUR ---
PATIENT'S DAUGHTER (ZEFERINO) IS AT PATIENT'S BEDSIDE AT THIS TIME.
--- NOTE | 2017-09-23 12:50 | NUR ---
09/23/17 RD INITIAL ASSESSMENT COMPLETED PLEASE REFER TO NUTRITION ASSESSMENT UNDER CARE ACTIVITY FOR ESTIMATED NUTRITIONAL NEEDS. 1. CONTINUE PUREE DIET TOLERATED PER MD 2. CONTINUE TO ENCOURAGE INCREASED PO INTAKE --NOTE PT MEETING 100% OF NUTRITIONAL NEEDS WITH CURRENT INTAKE. 3. RD TO FOLLOW-UP 3-5 DAYS, MODERATE RISK HETAL FITZGERALD RD
[2017-09-23] MEDS: HYDRAGUARD CREAM TP SCH (13:04)
[2017-09-23] MEDS: NYSTATIN/TRIAMCINOLONE CRM 15 GM TUBE TP SCH (13:07)
--- NOTE | 2017-09-23 13:15 | NUR ---
THROUGH HORSERADISH MAKER, MARIO HERNANDEZ. PATIENT AND DAUGHTER IN AGREEMENT TO GO TO SNF. THE DAUGHTER WANTS [facility] SINCE HER FATHER WAS THERE BEFORE. FAXED INQUIRY TO [facility]. I CALLED ASHLEY FROM [facility] AND INFORMED HER. ASHLEY SAID THE AUTH FOR OCC WILL BE [id number]. AUTH FOR [facility]SP[facility] IS [id number]. FROM RAIZA FROM [facility]. THE PATIENT CAN GO TO ROOM UPON DISCHARGE. CALL [phone]. Addendum: 09/23/17 at 1325 by Ronda Kohler CM PATIENT TO GO TO [facility] UPON DISCHARGE UNDER DR. Anna JOHN.
[2017-09-23] MEDS: HYDROcodone/APAP 5/325 MG 1 TAB TAB PO PRN (13:41)
--- NOTE | 2017-09-23 14:07 | NUR ---
CALLED RT TO REQUEST A BREATHING TREATMENT FOR THE PATIENT. I LET THEM KNOW THE PATIENT STATED HE WAS FEELING SHORT OF BREATH AT THIS TIME.
--- NOTE | 2017-09-23 14:11 | NUR ---
RESPIRATORY THERAPY IS AT PATIENT'S BEDSIDE AT THIS TIME.
--- NOTE | 2017-09-23 14:30 | NUR ---
PHYSICAL THERAPY WORKING WITH PT AT THIS TIME.
--- NOTE | 2017-09-23 15:35 | NUR ---
PT IS SLEEPING IN BED AT THIS TIME, NO S/S OF RESPIRATORY DISTRESS OR DISCOMFORT NOTED, CALL LIGHT WITHIN REACH.
[2017-09-23 16:00] VITALS: BP 145/71
--- NOTE | 2017-09-23 17:00 | NUR ---
PT SLEEPING IN BED, PATIENT'S DAUGHTER IS AT BEDSIDE, CALL LIGHT WITHIN REACH.
--- NOTE | 2017-09-23 19:17 | NUR ---
ENDORSED PT TO MECHANICAL PROJECT MANAGER NURSE FOR CONTINUITY OF CARE. PT STABLE AT THIS TIME.
--- NOTE | 2017-09-23 19:18 | NUR ---
PATIENT REPORT RECEIVED FROM MORNING NURSE. PATIENT HAVING BREATHING TREATMENT. NO SIGNS AND SYMPTOMS OF DISTRESS NOTED. PATIENT'S DAUGHTER IS AT BEDSIDE. IV SITE NOTED ON LEFT FOREARM, ASYMPTOMATIC, INTACT, PATENT. WITT CATHETER IN PLACE. BED IN LOWEST POSITION, SIDE RAILS UP AND CALL LIGHT WITHIN REACH. WILL CONTINUE TO MONITOR.
[2017-09-23] MEDS: AZITHROMYCIN 500 MG in DEXTROSE 5% 250 ML IV SCH (20:32)
--- NOTE | 2017-09-23 22:30 | NUR ---
CHECKED ON PATIENT. PATIENT IS ASLEEP. NO SIGNS AND SYMPTOMS OF DISTRESS NOTED. BED IN LOWEST POSITION, SIDE RAILS UP AND CALL LIGHT WITHIN REACH. WILL CONTINUE TO MONITOR.
[2017-09-24] VITALS: BP 132/60
[2017-09-24] MEDS: MILD SOAP AND WATER TP SCH ×2 (01:59→12:48)
[2017-09-24 05:34] LABS: HEMATOCRIT 34.2 % (36-52); HEMOGLOBIN 11.7 g/dL (12.0-18.0); MEAN CORPUSCULAR HEMOGLOBIN 28 pg (27-31); MEAN CORPUSCULAR HGB CONC 34 g/dL (33-37); MEAN CORPUSCULAR VOLUME 82 fL (80-94); PLATELET COUNT (AUTO) 391 K/uL (140-450); RED BLOOD CELL COUNT(AUTO) 4.16 MIL/uL (4.20-6.10); RED CELL DISTRIBUTION WIDTH 20.4 % (11.6-13.7); WHITE BLOOD COUNT (AUTO) 19.8 K/uL (4.8-10.8)
[2017-09-24 05:56] LABS: ANION GAP 12.2 (8-16); ASPARTATE AMINOTRANSFERASE 35 U/L (15-37); CARBON DIOXIDE 22.8 mmol/L (21-32); CHLORIDE 100 mmol/L (98-107); CREATININE 0.8 mg/dL (0.7-1.3); GLUCOSE 115 mg/dL (74-106); SODIUM SERUM 131 mmol/L (136-145); TOTAL BILIRUBIN 0.3 mg/dL (0.0-1.0); UREA NITROGEN, BLOOD 16 mg/dL (7-18)
[2017-09-24 06:47] LABS: EOSINOPHILS % (MANUAL) 1 % (0-4); LYMPHOCYTES % (MANUAL) 6 % (20-46); MONOCYTES % (MANUAL) 7 % (5-12)
[2017-09-24] MEDS: ACETYLCYSTEINE 10% (100 MG/ML) 100 MG/ML VIAL INH SCH ×2 (07:21→19:45)
--- NOTE | 2017-09-24 07:21 | NUR ---
PATIENT REPORT GIVEN AT BEDSIDE TO MORNING NURSE. PATIENT IS IN STABLE CONDITION
[2017-09-24] MEDS: BUDESONIDE 0.5 MG/2 ML NEBU INH SCH ×2 (07:22→19:45)
[2017-09-24] MEDS: ALBUTEROL 0.083% 2.5 MG/3 ML NEBU INH PRN ×2 (07:22→19:45)
--- NOTE | 2017-09-24 07:22 | NUR ---
RECEIVED REPORT FROM BOX CAR BRACER NURSE AT BEDSIDE FOR CONTINUITY OF CARE. PT IS AWAKE AND ORIENTED. INTRODUCED SELF AND UPDATED BOARD. NO SIGNS OF DISTRESS. WILL CONTINUE TO MONITOR.
[2017-09-24 08:00] VITALS: BP 127/58
[2017-09-24] MEDS: DOCUSATE SODIUM 100 MG GELCAP PO SCH ×2 (09:39→20:02)
[2017-09-24] MEDS: ENOXAPARIN 40 MG/0.4 ML SYR SUBQ SCH (09:39)
--- NOTE | 2017-09-24 09:45 | NUR ---
ADMINISTERED SCHEDULED MEDS AND COLACE. PT TOLERATED WELL. CLEANED PT, CHANGED GOWN AND LINENS WITH MOLASSES AND CARAMEL OPERATOR. REPOSITIONED PT TO LEFT SIDE. PT IS RESTING COMFORTABLY IN BED NOW. WILL CONTINUE TO MONITOR.
[2017-09-24] MEDS: POLYETHYLENE GLYCOL 17 GM/PKT PO PRN (09:52)
[2017-09-24] MEDS: HYDROcodone/APAP 5/325 MG 1 TAB TAB PO PRN ×2 (09:53→22:32)
--- NOTE | 2017-09-24 09:56 | NUR ---
PT COMPLAINED OF LOWER BACK PAIN 5/10. ADMINISTERED NORCO FOR PAIN. PT STATED HE WAS CONSTIPATED. ADMINISTERED MIRALAX FOR CONSTIPATION. PT TOLERATED MEDS WELL. NO SIGNS OF DISTRESS WILL CONTINUE TO MONITOR.
--- NOTE | 2017-09-24 12:06 | NUR ---
CHECKED ON PT IN ROOM. CNAS IN ROOM REPOSITIONED IN SITTING UP POSITION AND ASSISTING WITH LUNCH. PT DENIES PAIN. WILL CONTINUE TO MONITOR.
[2017-09-24] MEDS: PIPER/TAZO 3.375GM/D5W PREMIX 50 ML IV SCH ×2 (12:46→20:03)
[2017-09-24] MEDS: HYDRAGUARD CREAM TP SCH (12:48)
[2017-09-24] MEDS: NYSTATIN/TRIAMCINOLONE CRM 15 GM TUBE TP SCH (12:49)
[2017-09-24 16:00] VITALS: BP 117/59
--- NOTE | 2017-09-24 16:49 | NUR ---
ADMINISTERED FLU VACCINE IM TO L DELTOID AND PNA VACCINE IM TO R DELTOID. PT TOLERATED WELL. REPOSITIONED PT TO SITTING UP POSITION. HOB ELEVATED AT 30 DEGREES. NO SIGNS OF DISTRESS. WILL CONTINUE TO MONITOR.
--- NOTE | 2017-09-24 17:32 | NUR ---
PHYSICAL THERAPIST WITH PT RIGHT NOW IN ROOM.
--- NOTE | 2017-09-24 18:20 | NUR ---
PT'S DAUGHTER IS AT BEDSIDE. PT WAS DONE EATING DINNER SITTING AT EDGE OF BED ASSISTED BY DAUGHTER. D/C'D WITT CATHETER. TIP INTACT. 100ML URINE NOTED IN DRAINAGE BAG. INSTRUCTED PT AND DAUGHTER USE OF URINAL AND TO USE CALL LIGHT IF NEED OF ASSISTANCE. PT AND DAUGHTER VERBALIZED UNDERSTAND. PLACED URINAL BEDSIDE NEXT TO PT. CALL LIGHT WITHIN REACH. BED ALARM ON AND BED IN LOW POSITION. WILL CONTINUE TO MONITOR.
--- NOTE | 2017-09-24 19:20 | NUR ---
ENDORSED PT TO PLASTIC PANEL INSTALLER NURSE ERASTO AT BEDSIDE FOR CONTINUITY OF CARE. FAMILY AT BEDSIDE. PT IN STABLE CONDITION.
--- NOTE | 2017-09-24 19:25 | NUR ---
RECEIVED REPORT FROM AM NURSE. PT IS SLEEPING, EASY TO AROUSE. ON ROOM AIR. IV ACCESS IS INTACT, PATENT AND ASYMPTOMATIC, SALINE LOCK. NO SIGNS OF ACUTE DISTRESS. SKIN COLOR APPROPRIATE TO ETHNICITY. BED IN LOW POSITION, BILATERAL HALF SIDE RAILS UP, CALL LIGHT WITHIN REACH, WILL CONTINUE TO MONITOR.
[2017-09-24] MEDS: AZITHROMYCIN 500 MG in DEXTROSE 5% 250 ML IV SCH (20:03)
--- NOTE | 2017-09-24 21:32 | NUR ---
PT STATES HE FEELS THE NEED TO VOID, ASSISTED PT WITH USING THE URINAL AND BEDSIDE COMMODE. HOWEVER PT WAS UNABLE TO VOID.
--- NOTE | 2017-09-24 21:33 | NUR ---
PT STATES HE FEELS THE NEED TO VOID, ASSISTED PT WITH USING THE URINAL AND BEDSIDE COMMODE. HOWEVER PT WAS UNABLE TO VOID. INSTRUCTED PT ON THE USE OF URINAL AND TO USE CALL LIGHT IF HE NEEDS ANY ASSISTANCE. BED IN LOW POSITION, BILATERAL HALF SIDE RAILS UP, CALL LIGHT WITHIN REACH, WILL CONTINUE TO MONITOR.
[2017-09-25] VITALS: BP 111/52
--- NOTE | 2017-09-25 00:20 | NUR ---
PT STILL UNABLE TO VOID, PELVIC AREA DISTENDED, BLADDER SCAN PERFORMED WITH 773 ML RESULT, PAGED DR SCOTT (COVERING FOR DR CAO), WITH NEW ORDER, WITT CATHETER INSERTED WITHOUT DIFFICULTY, IMMEDIATE RETURN OF CLEAR LIGHT YELLOW URINE 1,050ML, MONITORED CLOSELY.
[2017-09-25] MEDS: MILD SOAP AND WATER TP SCH ×2 (01:35→13:31)
--- NOTE | 2017-09-25 04:13 | NUR ---
PT IS SLEEPING, EASY TO AROUSE. NO SIGNS OF ACUTE DISTRESS. BED IN LOW POSITION, BILATERAL HALF SIDE RAILS UP, CALL LIGHT WITHIN REACH, WILL CONTINUE TO MONITOR
[2017-09-25] MEDS: PIPER/TAZO 3.375GM/D5W PREMIX 50 ML IV SCH ×2 (05:04→13:36)
[2017-09-25 06:54] LABS: BASOPHILS # (AUTO) 0.1 K/uL (0.00-0.22); BASOPHILS % (AUTO) 0.8 % (0.0-2.0); EOSINOPHILS # (AUTO) 0.2 K/uL (0-0.4); EOSINOPHILS % (AUTO) 1.3 % (0.0-4.0); HEMATOCRIT 28.8 % (36-52); HEMOGLOBIN 9.3 g/dL (12.0-18.0); LYMPHOCYTES # (AUTO) 1.4 K/uL (2.0-11.5); MEAN CORPUSCULAR HEMOGLOBIN 27 pg (27-31); MEAN CORPUSCULAR HGB CONC 32 g/dL (33-37); MEAN CORPUSCULAR VOLUME 82 fL (80-94); MONOCYTES # (AUTO) 1.2 K/uL (0.8-1.0); MONOCYTES % (AUTO) 7.1 % (1.7-9.3); NEUTROPHILS % (AUTO) 82.8 % (42.2-75.2); PLATELET COUNT (AUTO) 453 K/uL (140-450); RED BLOOD CELL COUNT(AUTO) 3.51 MIL/uL (4.20-6.10); RED CELL DISTRIBUTION WIDTH 19.6 % (11.6-13.7)
--- NOTE | 2017-09-25 07:20 | NUR ---
ENDORSED PT TO AM NURSE FOR CONTINUITY OF CARE. PT IN STABLE CONDITION
--- NOTE | 2017-09-25 07:30 | NUR ---
RECEIVED PT ON BED AAOX3-4 WITH PERIODS OF FORGETFULNESS. REORIENTATION PROVIDED. NO SOB NOTED. NO C/O PAIN AT THIS TIME. IV TO LT HAND PATENT AND INTACT. CHEST CLEAR. ABDOMEN SOFT, BOWEL SOUNDS PRESENT. NO EDEMA NOTED. BED ON LOW POSITION, ON BED ALARM. INSTRUCTED PT TO CALL FOR ASSISTANCE, CALL LIGHT WITHIN REACH. PT VERBALIZED UNDERSTANDING.
[2017-09-25] MEDS: ACETYLCYSTEINE 10% (100 MG/ML) 100 MG/ML VIAL INH SCH (07:38)
[2017-09-25] MEDS: ALBUTEROL 0.083% 2.5 MG/3 ML NEBU INH PRN (07:38)
[2017-09-25] MEDS: BUDESONIDE 0.5 MG/2 ML NEBU INH SCH (07:38)
[2017-09-25 07:52] LABS: ALBUMIN 1.8 g/dL (3.4-5.0); ANION GAP 10.4 (8-16); ASPARTATE AMINOTRANSFERASE 43 U/L (15-37); CARBON DIOXIDE 26.4 mmol/L (21-32); CHLORIDE 100 mmol/L (98-107); CREATININE 0.8 mg/dL (0.7-1.3); GLUCOSE 108 mg/dL (74-106); POTASSIUM 3.8 mmol/L (3.5-5.1); SODIUM SERUM 133 mmol/L (136-145); TOTAL BILIRUBIN 0.3 mg/dL (0.0-1.0); UREA NITROGEN, BLOOD 22 mg/dL (7-18)
[2017-09-25 08:00] VITALS: BP 113/62
[2017-09-25 08:04] LABS: WHITE BLOOD COUNT (AUTO) 16.9 K/uL (4.8-10.8)
[2017-09-25] MEDS ORDERED: TAMSULOSIN 0.4 MG CAP PO SCH ×2 (08:30)
--- NOTE | 2017-09-25 09:45 | NUR ---
CXR 2 VIEWS ON GOING AT THE BEDSIDE.
[2017-09-25] MEDS: DOCUSATE SODIUM 100 MG GELCAP PO SCH (10:07)
[2017-09-25] MEDS: HYDROcodone/APAP 5/325 MG 1 TAB TAB PO PRN (10:07)
[2017-09-25] MEDS: ENOXAPARIN 40 MG/0.4 ML SYR SUBQ SCH (10:08)
[2017-09-25] MEDS: HYDRAGUARD CREAM TP SCH (13:31)
[2017-09-25] MEDS: NYSTATIN/TRIAMCINOLONE CRM 15 GM TUBE TP SCH (13:35)
--- NOTE | 2017-09-25 15:51 | NUR ---
CALLED [facility] TO VERIFY THAT PATIENT WILL GO THERE TODAY, SHE SAID PATIENT WILL GO TO ROOM 12B INSTEAD OF 5B. SPOKE TO HIEN FROM [employer] TIME IS 193.
[2017-09-25] MEDS ORDERED: ZOS3.375I IV (15:53)
[2017-09-25] MEDS ORDERED: AZIT500P1 IV (15:55)
[2017-09-25 16:00] VITALS: BP 102/57
--- NOTE | 2017-09-25 18:31 | NUR ---
REPORT GIVEN TO VALERIE-MARY ORNAMENTAL PAINTER AT [facility].
--- NOTE | 2017-09-25 19:00 | NUR ---
PT RESTING. NO SOB NOTED. NO C/O PAIN AT THIS TIME. WILL ENDORSE TO NEXT SHIFT NURSE TO CONTINUE THE DISCAHRGE PROCESS. CHARTER COACH DRIVER TIME AT 1930 HRS FREDRICK.
== END 2017-09-25 19:20 | DRG 139 ==
LOC: MED 20:34 → MERGE 22:27 → MTU 22:27
PROVIDERS: ADMIT Hospitalist; ATTEND Hospitalist
PROC: 3E0234Z Introduction of Serum, Toxoid and Vaccine into Muscle, Percutaneous Approach (ICD-10-PCS; principal; 2017-09-24)
PROC: 3E0234Z Introduction of Serum, Toxoid and Vaccine into Muscle, Percutaneous Approach (ICD-10-PCS; 2017-09-24)
DX: J18.9 Pneumonia, unspecified organism (principal); E43 Unspecified severe protein-calorie malnutrition; N40.0 Benign prostatic hyperplasia without lower urinary tract symptoms; M48.50XA Collapsed vertebra, not elsewhere classified, site unspecified, initial encounter for fracture; W05.0XXA Fall from non-moving wheelchair, initial encounter; Z68.28 Body mass index [BMI] 28.0-28.9, adult; Z87.891 Personal history of nicotine dependence; Y93.89 Activity, other specified; Y99.8 Other external cause status; Y92.129 Unspecified place in nursing home as the place of occurrence of the external cause; Z23 Encounter for immunization
CPT/HCPCS: 36415; 51702; 71010; 71020; 80048; 80053; 81003; 83605; 83735; 84100; 84484; 85025; 85610; 85730; 87040; 87081; 87086; 90658; 90732; 93005; 94640; 96361; 96365; 96375; 97110; 97116; 97530; 99285; J0456; J0696; J1170; J1650; J2060; J2543; J3010; J7030; J7060; J7613; J7626; Q0092

== ENCOUNTER 2017-10-24 23:40 | Inpatient (IN) | payer OTHER, MEDICARE ==
[~2017-10-24] VITALS: Ht 167.6 cm; Wt 57.6 kg
[2017-10-24 23:40] VITALS: BP 103/60
[~2017-10-24 23:40] MED LIST changes: +AZIT500P1 IV; +TRAM50TA1 PO; +ZOS3.375I IV
--- NOTE | 2017-10-24 23:40 | NUR ---
BIBA TO ER BED 1
--- NOTE | 2017-10-24 23:40 | NUR ---
Patient being evaluated by physician at bedside.
[2017-10-24] MEDS ORDERED: NACL 0.9% 1,000 ML IV ONE (23:48)
[2017-10-24 23:59] LABS: HEMATOCRIT 27.5 % (36-52); HEMOGLOBIN 8.5 g/dL (12.0-18.0); MEAN CORPUSCULAR HEMOGLOBIN 24 pg (27-31); MEAN CORPUSCULAR HGB CONC 31 g/dL (33-37); MEAN CORPUSCULAR VOLUME 77 fL (80-94); PLATELET COUNT (AUTO) 321 K/uL (140-450); RED BLOOD CELL COUNT(AUTO) 3.58 MIL/uL (4.20-6.10); WHITE BLOOD COUNT (AUTO) 11.4 K/uL (4.8-10.8)
[2017-10-25] VITALS (9 sets, daily range): BP systolic 90–117; BP diastolic 44–67
--- NOTE | 2017-10-25 | NUR ---
82Y/M PT. BIBA TO ED WITH C/O DIFFICULTY SWALLOWING, LETHARGIC X 2 DAYS. PER EMS PT. FROM SNF, HAVING DIFFICULTY SWALLOWING X 2 DAYS. PT. HTN, BPH, GERD, ASTHMA, COPD. AAO X4, UNABLE TO AMBULATED. RESPIRATIONS ON O2 2LPM VIA NC, EVEN AND UNLABORED, [place] RR24-26, BL LUNG COURSE. O2 SAT 98%. C/O COUGH. SKIN WARM AND DRY. VS, ELEVATED TEMP 100.5, ER MD MADE AWARE OF PT. STATUS.
[2017-10-25 00:15] LABS: PROTHROMBIN TIME 12.1 secs (10.8-13.4)
[2017-10-25 00:17] LABS: LYMPHOCYTES % (MANUAL) 13 % (20-46); MONOCYTES % (MANUAL) 4 % (5-12)
[2017-10-25 00:18] LABS: ALBUMIN 1.9 g/dL (3.4-5.0); ANION GAP 15.5 (8-16); ASPARTATE AMINOTRANSFERASE 36 U/L (15-37); CARBON DIOXIDE 23.9 mmol/L (21-32); CHLORIDE 123 mmol/L (98-107); CREATININE 3.5 mg/dL (0.7-1.3); GLUCOSE 130 mg/dL (74-106); LIPASE 42 U/L (73-393); POTASSIUM 3.4 mmol/L (3.5-5.1); TOTAL BILIRUBIN 0.3 mg/dL (0.0-1.0); UREA NITROGEN, BLOOD 58 mg/dL (7-18)
[2017-10-25 00:21] LABS: SODIUM SERUM 159 mmol/L (136-145)
[2017-10-25] MEDS ORDERED: PIPERACILLIN/TAZOBACTAM 3.375 GM in DEXTROSE 5% 50 ML IV ONE (00:25)
[2017-10-25] MEDS ORDERED: NACL 0.9% 1,000 ML IV ONE (00:25)
[2017-10-25] MEDS ORDERED: LEVOFLOXACIN 750 MG/D5W PREMIX 150 ML IV ONE (00:25)
[2017-10-25 00:42] LABS: APPEARANCE,URINE CLOUDY (CLEAR); BILIRUBIN,URINE NEGATIVE (NEGATIVE); BLOOD, URINE 2+ (NEGATIVE); COLOR,URINE YELLOW (YELLOW); LEUKOCYTE ESTERASE ,URINE 3+ (NEGATIVE); NITRITE, URINE POSITIVE (NEGATIVE); PH,URINE 7.5 (5.0-9.0); UGLUCOSE NEGATIVE (NEGATIVE)
[2017-10-25] MEDS ORDERED: PIPERACILLIN/TAZOBACTAM 3.375 GM VIAL IV ONE (00:48)
[2017-10-25 00:53] LABS: RBC,URINE TOO NUMEROUS TO COUN /HPF (0-5); WBC,URINE TOO MANY TO COUNT /HPF (0-5)
[2017-10-25] MEDS ORDERED: ALBUTEROL 0.083% 2.5 MG/3 ML NEBU IH PRN (01:30)
[2017-10-25] MEDS ORDERED: LEVOFLOXACIN 250 MG/D5 PREMIX 50 ML IV SCH (01:30)
[2017-10-25] MEDS ORDERED: ACETAMINOPHEN 325 MG TAB PO PRN (01:30)
[2017-10-25] MEDS ORDERED: ONDANSETRON 4 MG/2 ML VIAL IVP PRN (01:30)
--- NOTE | 2017-10-25 01:30 | NUR ---
Patient appears to be resting comfortably in bed. Vital Signs within normal limits. Respirations even and unlabored.
[2017-10-25] MEDS ORDERED: NACL 0.9% 1,000 ML IV SCH (01:42)
--- NOTE | 2017-10-25 02:20 | NUR ---
PATIENT REPORT RECEIVED AT BEDSIDE FROM ER NURSE. PATIENT ADMITTED TO THE UNIT. ARRIVED VIA GURNEY. PATIENT IS NON-VERBAL. NODS HEAD YES AND NO TO QUESTIONS. PATIENT IS AWAKE AND ALERT. NO SIGNS AND SYMPTOMS OF DISTRESS NOTED. PATIENT IS ON O2 4L NC. WITT CATHETER IS IN PLACE, 18 [place], DRAINING YELLOW URINE. NOTED SCAB ON RIGHT KNEE. PICTURE TAKEN IN ER. FALL AND SAFETY PRECAUTIONS IN PLACE. BED IN LOWEST POSITION, SIDE RAILS UP AND CALL LIGHT WITHIN REACH. WILL CONTINUE TO MONITOR.
--- NOTE | 2017-10-25 02:25 | NUR ---
Patient will be admitted to care of DR. CAMPOS. Admited to TELEMETRY. Will go to [id number]. Belongings list completed. Report to MARY JAMES.
--- NOTE | 2017-10-25 03:15 | NUR ---
CALLED [facility] AND SPOKE TO EVENING NURSE. NURSE STATED THAT WITT CATHETER WAS INSERTED 2 WEEKS AGO.
--- NOTE | 2017-10-25 03:20 | NUR ---
PATIENT SEEN BY RT. RT STATED IT WAS OK TO PUT PATIENT ON 2L O2 NC, INSTEAD OF 4L. O2 SAT IS AT 97%. PATIENT TOLERATING WELL
--- NOTE | 2017-10-25 03:30 | NUR ---
NOTIFIED DR. CAO OF PATIENT'S POTASSIUM LEVEL OF 3.4, ORDERS RECEIVED. ALSO NOTIFIED DR. CAO OF PATIENTS SODIUM LEVEL OF 159, AND WANTED TO CLARIFY IVF ORDER. SAID TO STILL KEEP HIM ON NORMAL SALINE.
[2017-10-25] MEDS ORDERED: KCL 20 MEQ/WATER INJ PREMIX 100 ML IV ONE (03:40)
[2017-10-25] MEDS ORDERED: PIPERACILLIN/TAZOBACTAM 2.25 GM in DEXTROSE 5% 50 ML IV SCH (05:00)
[2017-10-25] MEDS ORDERED: PIPERACILLIN/TAZOBACTAM 3.375 GM in DEXTROSE 5% 50 ML IV SCH (05:00)
[2017-10-25] MEDS ORDERED: PIPERACILLIN/TAZOBACTAM 2.25 GM VIAL IV ONE (05:42)
[2017-10-25 06:29] LABS: BASOPHILS # (AUTO) 0.1 K/uL (0.00-0.22); BASOPHILS % (AUTO) 0.7 % (0.0-2.0); EOSINOPHILS # (AUTO) 0.2 K/uL (0-0.4); EOSINOPHILS % (AUTO) 1.9 % (0.0-4.0); HEMATOCRIT 25.6 % (36-52); LYMPHOCYTES # (AUTO) 0.9 K/uL (2.0-11.5); LYMPHOCYTES % (AUTO) 8.6 % (20.5-51.1); MEAN CORPUSCULAR HEMOGLOBIN 24 pg (27-31); MEAN CORPUSCULAR HGB CONC 31 g/dL (33-37); MEAN CORPUSCULAR VOLUME 78 fL (80-94); MONOCYTES # (AUTO) 0.5 K/uL (0.8-1.0); MONOCYTES % (AUTO) 5.1 % (1.7-9.3); NEUTROPHILS # (AUTO) 8.7 K/uL (1.8-7.7); NEUTROPHILS % (AUTO) 83.7 % (42.2-75.2); PLATELET COUNT (AUTO) 287 K/uL (140-450); WHITE BLOOD COUNT (AUTO) 10.4 K/uL (4.8-10.8)
[2017-10-25 06:58] LABS: ALBUMIN 1.6 g/dL (3.4-5.0); ANION GAP 11.2 (8-16); ASPARTATE AMINOTRANSFERASE 37 U/L (15-37); CARBON DIOXIDE 25.5 mmol/L (21-32); CHLORIDE 126 mmol/L (98-107); CREATININE 3.1 mg/dL (0.7-1.3); GLUCOSE 109 mg/dL (74-106); POTASSIUM 3.7 mmol/L (3.5-5.1); TOTAL BILIRUBIN 0.3 mg/dL (0.0-1.0); UREA NITROGEN, BLOOD 57 mg/dL (7-18)
--- NOTE | 2017-10-25 07:10 | NUR ---
RECEIVED PATIENT REPORT AT BEDSIDE.PATIENT ASLEEP BUT AROUSABLE. PATIENT AWAKES BUT IS VERY LETHARGIC. LABORED BREATHING NOTED. PATIENT ON 2L O2. O2 SAT 97% AT THIS TIME. WITT CATHETER IN PLACE DRAINING YELLOW URINE. IV LINE NOTED TO THE RIGHT AND LEFT WRISTS. IVF INFUSING WELL IN THE LEFT WRIST IV LINE. PATIENT ON TELE MONITORING. BED LOWERED WITH CALL LIGHT WITHIN REACH. WILL CONTINUE TO MONITOR
[2017-10-25 07:14] LABS: SODIUM SERUM 159 mmol/L (136-145)
--- NOTE | 2017-10-25 07:14 | NUR ---
PATIENT REPORT GIVEN TO MORNING NURSE. PATIENT IS IN STABLE CONDITION
[2017-10-25] MEDS: IPRATROPIUM 0.02% 0.5 MG/2.5 ML NEBU IH SCH ×2 (07:22→13:00)
[2017-10-25] MEDS ORDERED: DEXTROSE 5% 1,000 ML IV SCH (07:55)
--- NOTE | 2017-10-25 08:00 | NUR ---
PATIENT RECEIVING BREATHING TX
--- NOTE | 2017-10-25 08:30 | NUR ---
NOTIFIED DR CAMPOS THAT PATIENT CAN NOT TOLERATE SOFT DIET. ORDERS RECEIVED
--- NOTE | 2017-10-25 09:13 | NUR ---
PATIENT ASLEEP IN BED. NO S/S OF DISTRESS NOTED
--- NOTE | 2017-10-25 10:08 | NUR ---
PATIENT HAS BEEN SCREENED AND CATEGORIZED HIGH NUTRITION RISK. PATIENT WILL BE SEEN WITHIN 1-2 DAYS OF ADMISSION. 10/25/17-10/26/[address]
[2017-10-25] MEDS ORDERED: DEXT 5% / NACL 0.45% 1,000 ML IV SCH (11:00)
--- NOTE | 2017-10-25 11:02 | NUR ---
PATIENT SEEN BY DR SCOTT. ORDERS TO FLUSH THE WITT CATHETER WITH 250ML NS AND CHANGE IVF TO D5 1/2NS
--- NOTE | 2017-10-25 11:03 | NUR ---
NEW 16F WITT CATHETER INSERTED. OUTPUT OF 2400 ML OF DARK YELLOW URINE WITH SEDIMENTS NOTED Addendum: 10/25/17 at 1650 by Diomedes Max RN URINE OUTPUT OF 2000ML NOTED AFTER NEW WITT CATHETER WAS INSERTED. 400 OUTPUT FROM INITIAL WITT CATHETER
--- NOTE | 2017-10-25 12:38 | NUR ---
PATIENT SEEN BY DR CAMPOS
[2017-10-25] MEDS: PIPER/TAZO 2.25GM/D5W PREMIX 50 ML IV SCH ×2 (12:49→20:12)
--- NOTE | 2017-10-25 13:37 | NUR ---
PT HAVING ULTRA SOUND DONE AND FAMILY DOES NOT WANT HHN GIVEN TO PT RIGHT NOW NO SIGNS OF DISTRESS NOTED AT THIS TIME
--- NOTE | 2017-10-25 16:19 | NUR ---
TEMP 101.6 TAKEN ORALLY. COOLING MEASURES IN PLACE. PAGED DR CAMPOS
--- NOTE | 2017-10-25 16:25 | NUR ---
INFORMED DR CAMPOS ABOUT PATIENT'S TEMP AND DROP IN BP. ORDERS RECEIVED
[2017-10-25] MEDS ORDERED: ACETAMINOPHEN 650 MG SUPP RC PRN ×2 (16:30→16:35)
--- NOTE | 2017-10-25 17:02 | NUR ---
* ST PVE NOTE * Clinician encountering nsg staff, family and pt en route from [facility] to ICU 2/2 to pt exhibiting respiratory issues. Nsg thus advising pt is not appropriate for ST evaluation at this time 2/2 to other medical comorbidities, w/ST verbalizing understanding and agreement, stating she may return if MD permits once pt has stabilized medically. PVE Time In/Out 16:45 - 17:00
--- NOTE | 2017-10-25 17:05 | NUR ---
PATIENT TRANSFERRED TO ICU
--- NOTE | 2017-10-25 17:20 | NUR ---
received report from telecommunication equipment repairer at bedside.pt awake, tracks,answers to questions by nodding or shaking head. dr zuñiga at bedside with rt. st/sr on monitor.on 02nc at 2lpm.sob noted. abg ordered by . pt put on bipap 10/25 rate 10 fio2 30%. temp rechecked 99.7.new order received from dr zuñiga.carried out.will continue to closely monitor pt. Addendum: 10/25/17 at 1837 by Korina Desai RN june catheter in place with small amt of yellow urine noted.scab to rt knee also noted with minimal drainage noted.
[2017-10-25] MEDS ORDERED: ALBUMIN HUMAN 25% 50 ML IV SCH (17:38)
[2017-10-25] MEDS: DEXT 5% /NACL 0.9% 1,000 ML IV SCH ×2 (17:51→22:00)
[2017-10-25] MEDS: ALBUTEROL 0.083% 2.5 MG/3 ML NEBU INH SCH ×2 (19:03→22:31)
[2017-10-25] MEDS: IPRATROPIUM 0.02% 0.5 MG/2.5 ML NEBU INH SCH ×2 (19:03→22:31)
[2017-10-25] MEDS: methylPREDNISolone SS 125 MG/2 ML VIAL IVP SCH (20:11)
--- NOTE | 2017-10-25 20:30 | NUR ---
SCHEDULED MEDICATIONS ADMINISTERED. PT TOLERATED WELL. PERIPHERAL IV PATENT AND ASYMPTOMATIC. WILL CONTINUE TO MONITOR PT.
--- NOTE | 2017-10-25 21:35 | NUR ---
RECEIVED REPORT FOR PT. VS STABLE AT THIS TIME. AFEBRILE. ABLE TO NOD TO ANSWER QUESTIONS. AROUSABLE TO NAME. ON BIPAP 12/, RATE 10, AND FIO2 30%. NO SIGNS OF DISTRESS NOTED. SINUS RHYTHM ON MONITOR. PERIPHERAL IV LINES PATENT AND ASYMPTOMATIC. D5 .45 NS RUNNING AT 100ML/HR. CURRENTLY NPO. NO EDEMA NOTED. WITT CATHETER IN PLACE. DRAINING CLEAR, YELLOW URINE. SCD IN PLACE. PT TURNED AND REPOSITIONED. ALL SAFETY PRECAUTIONS IN PLACE. BED AT LOW POSITION. WILL CONTINUE TO CLOSELY MONITOR PT. Addendum: 10/25/17 at 2342 by Christina Begum RN RECEIVED REPORT AT 1930
--- NOTE | 2017-10-25 23:30 | NUR ---
PAGED AT [phone], AND RECEIVED A CALL BACK FROM DR. MOHAN AT [phone]. REPORTED BLOOD CULTURE RESULT. PER NO NEW ORDERS.
[2017-10-26] VITALS (16 sets, daily range): BP systolic 108–133; BP diastolic 50–86
--- NOTE | 2017-10-26 00:25 | NUR ---
VS STABLE AT THIS TIME. NO CHANGE IN CONDITION. PT CURRENTLY ASLEEP. STILL ON BIPAP. ALL SAFETY PRECAUTIONS IN PLACE. CALL LIGHT WITHIN REACH. WILL CONTINUE TO MONITOR.
--- NOTE | 2017-10-26 02:49 | NUR ---
PT DOES NOT APPEAR TO BE IN ANY DISTRESS. VS STABLE. NO CHANGE IN CONDITION. DENIES HAVING ANY PAIN. ALL SAFETY PRECAUTIONS IN PLACE. WILL CONTINUE TO MONITOR PT.
[2017-10-26] MEDS: ALBUTEROL 0.083% 2.5 MG/3 ML NEBU INH SCH ×6 (03:05→23:06)
[2017-10-26] MEDS: IPRATROPIUM 0.02% 0.5 MG/2.5 ML NEBU INH SCH ×6 (03:05→23:06)
[2017-10-26] MEDS: methylPREDNISolone SS 125 MG/2 ML VIAL IVP SCH ×3 (05:12→21:07)
[2017-10-26] MEDS: PIPER/TAZO 2.25GM/D5W PREMIX 50 ML IV SCH ×3 (05:12→21:08)
[2017-10-26 05:26] LABS: HEMATOCRIT 26.4 % (36-52); HEMOGLOBIN 8.2 g/dL (12.0-18.0); MEAN CORPUSCULAR HEMOGLOBIN 24 pg (27-31); MEAN CORPUSCULAR HGB CONC 31 g/dL (33-37); MEAN CORPUSCULAR VOLUME 78 fL (80-94); PLATELET COUNT (AUTO) 275 K/uL (140-450); RED CELL DISTRIBUTION WIDTH 19.5 % (11.6-13.7); WHITE BLOOD COUNT (AUTO) 7.7 K/uL (4.8-10.8)
--- NOTE | 2017-10-26 05:40 | NUR ---
SCHEDULED MEDICATIONS ADMINISTERED. NO CHANGE IN CONDITION AT THIS TIME. WILL CONTINUE TO MONITOR.
[2017-10-26 05:55] LABS: ALBUMIN 1.8 g/dL (3.4-5.0); ANION GAP 13.1 (8-16); ASPARTATE AMINOTRANSFERASE 41 U/L (15-37); CARBON DIOXIDE 23.2 mmol/L (21-32); CHLORIDE 127 mmol/L (98-107); CREATININE 2.5 mg/dL (0.7-1.3); GLUCOSE 216 mg/dL (74-106); MAGNESIUM 1.6 mg/dL (1.8-2.4); PHOSPHORUS 2.9 mg/dL (2.5-4.9); POTASSIUM 3.3 mmol/L (3.5-5.1); TOTAL BILIRUBIN 0.2 mg/dL (0.0-1.0); UREA NITROGEN, BLOOD 42 mg/dL (7-18)
[2017-10-26 06:23] LABS: SODIUM SERUM 160 mmol/L (136-145)
[2017-10-26 06:50] LABS: LYMPHOCYTES % (MANUAL) 2 % (20-46); MONOCYTES % (MANUAL) 1 % (5-12)
--- NOTE | 2017-10-26 07:00 | NUR ---
PAGED AT [phone]. RECEIVED CALL BACK FROM DR. MOHAN. REPORTED CRITICAL SODIUM 160. PER MD CHANGE IV FLUID TO D5W AT 100ML/HR AND TO RECHECK BMP 10/26/17 AT 1500. REPORTED ALSO POTASSIUM LEVEL 3.3; RECEIVED ORDER TO GIVE K-RIDER 40 MEQ X1 TIME. NOTED AND CARRIED OUT.
[2017-10-26] MEDS ORDERED: DEXTROSE 5% 1,000 ML IV SCH ×2 (07:05→11:25)
--- NOTE | 2017-10-26 07:21 | NUR ---
REPORT GIVEN TO MARY SIDDIQUI FOR CONTINUITY OF CARE. PT CURRENTLY IN STABLE CONDITION.
--- NOTE | 2017-10-26 07:22 | NUR ---
RECEIVED REPORT FROM MARY HUERTAS. NO SIGNS OF ACUTE DISTRESS AT THIS TIME, DENIES PAIN. PT IS AAOX1. PT IS ABLE TO TRACK AND NODS TO VERBAL QUESTIONING. PT IS ON BIPAP. I/E: 12/5, RATE: 10, FIO2: 30%. IV TO LEFT HAND #20 AND RIGHT HAND #20 PATENT AND INTACT. SCAB NOTED TO RIGHT KNEE, SKIN IS OTHERWISE INTACT. WITT CATHETER IN PLACE DRAINING TO GRAVITY DRAINAGE BAG. SAFETY PRECAUTIONS IN PLACE WITH BED IN LOWEST POSITION AND SIDE RAILS UP. CALL LIGHT WITHIN REACH. WILL CONTINUE TO MONITOR.
[2017-10-26] MEDS ORDERED: KCL 20 MEQ/WATER INJ PREMIX 200 ML IV SCH (07:30)
--- NOTE | 2017-10-26 07:57 | NUR ---
PAGED DR. CAMPOS REGARDING LOW MAGNESIUM: 1.6. AWAITING CALLBACK.
--- NOTE | 2017-10-26 08:06 | NUR ---
RECEIVED CALLBACK FROM DR. CAMPOS. NEW ORDERS RECEIVED.
--- NOTE | 2017-10-26 08:25 | NUR ---
PT TOLERATED MEDS WELL.
--- NOTE | 2017-10-26 08:31 | NUR ---
PAGED DR. CAMPOS REGARDING LAB RESULT: POSITIVE MRSA NARES. AWAITING CALLBACK.
--- NOTE | 2017-10-26 08:32 | NUR ---
RECEIVED CALLBACK FROM DR. CAMPOS. NEW ORDERS RECEIVED.
--- NOTE | 2017-10-26 08:40 | NUR ---
PT'S DAUGHTER PRESENT AT BEDSIDE.
[2017-10-26] MEDS ORDERED: MAG SULF 2000 MG/WATER PREMIX 50 ML IV SCH (09:00)
--- NOTE | 2017-10-26 09:36 | NUR ---
DR. CAMPOS IN TO SEE PT. WILL FOLLOW UP ON ORDERS.
[2017-10-26] MEDS: MUPIROCIN 2% OINT 22 GM TUBE TP SCH (09:46)
[2017-10-26] MEDS: CHLORHEXADINE GLUC 2% CLOTH TP SCH (09:46)
--- NOTE | 2017-10-26 09:52 | NUR ---
DEEP SUCTIONED PT, OBTAINED THICK YELLOW RED TINGED SECRETIONS
[2017-10-26] MEDS ORDERED: PROBIOTIC SCREEN 1 EA MISC MC PRN (10:45)
[2017-10-26] MEDS ORDERED: LACTOBACILLUS RHAMNOSUS GG 1 EACH CAP PO SCH (11:00)
--- NOTE | 2017-10-26 11:13 | NUR ---
DR. SCOTT IN TO SEE PT. WILL FOLLOW UP ON ORDERS.
[2017-10-26] MEDS ORDERED: HYDROmorphone 1 MG/ML AMP IVP PRN (11:25)
--- NOTE | 2017-10-26 13:06 | NUR ---
DR. SULLIVAN IN TO SEE PT. WILL FOLLOW UP ON ORDERS.
--- NOTE | 2017-10-26 13:08 | NUR ---
PT OFF BIPAP PER DR. GRIFFITH, REQUESTED TO ATTEMPT TO USE BIPAP NOC AND STAY OFF DURING THE DAY TOLERATED. PT PLACED ON 4LNC; JAYSON WELL WITH SAT 99%, HR97 WITHOUT ANY DISTRESS NOTED AT THIS TIME.
--- NOTE | 2017-10-26 13:30 | NUR ---
PT FOUND WITH IV TO RIGHT HAND #20 PULLED UP, CANNULA INTACT. OTHER IV SITE TO LEFT HAND #20 PATENT AND INTACT. WILL CONTINUE TO MONITOR.
--- NOTE | 2017-10-26 13:33 | NUR ---
KADY COELLO, SPEECH THERAPIST, TO FOLLOW UP ON PT'S SWALLOW EVAL.
--- NOTE | 2017-10-26 13:44 | NUR ---
10/26/17 RD INITIAL ASSESSMENT COMPLETED PLEASE REFER TO NUTRITION ASSESSMENT UNDER CARE ACTIVITY FOR ESTIMATED NUTRITIONAL NEEDS. 1. CONTINUE NPO MEDICALLY APPROPRIATE PER MD 2. IF PT PASSES SWALLOW EVALUATION RECOMMEND LOW SODIUM DIET WITH TEXTURE MODIFICATIONS PER SPEECH THERAPIST RECOMMENDATIONS 3. IF PT FAILS SWALLOW EVALUATION RECOMMEND PLACING FEEDING TUBE FOR NUTRITION SUPPORT: NUTREN PULMONARY AT 50 ML/HR GOAL -START AT 10 ML/HR AND ADVANCE 10 ML Q4H TOLERATED TO PREVENT REFEEDING SYNDROME D/T PT WITH POOR PO INTAKE RECENTLY -AT GOAL, THIS WILL PROVIDE 1200 ML TOTAL VOLUME, 1800 KCAL, 82 GM PROTEIN, TO MEET 100% OF PT ESTIMATED KCAL AND PROTEIN NEEDS 4. RD TO FOLLOW-UP 2-3 DAYS, HIGH RISK HETAL FITZGERALD RD
--- NOTE | 2017-10-26 13:49 | NUR ---
14FR NGT INSERTED TO RIGHT NARE, AUSCULTATED AIR BOLUS OVER STOMACH. PT TOLERATED WELL. WILL CONTINUE TO MONITOR.
--- NOTE | 2017-10-26 13:55 | NUR ---
NGT FOUND COILED IN THE BACK OF THE THROAT, REMOVED WITH NO INCIDENT. PT TOLERATED WELL. PT REFUSED REINSERTION.
--- NOTE | 2017-10-26 15:05 | NUR ---
CM NOTE INITIAL REVIEW FAXED TO [facility] / FAX# [phone], ATTN: ASHLEY #[phone]
--- NOTE | 2017-10-26 15:09 | NUR ---
PAGED DR. SULLIVAN REGARDING UNSUCCESSFUL NGT INSERTION AND PT REFUSAL FOR REINSERTION. AWAITING CALLBACK.
--- NOTE | 2017-10-26 15:11 | NUR ---
RECEIVED CALLBACK FROM DR. SULLIVAN. AWARE OF UNSUCCESSFUL NGT INSERTION. NO CHANGE IN ORDERS.
--- NOTE | 2017-10-26 16:15 | NUR ---
SPEECH THERAPIST PRESENT AT BEDSIDE FOR SWALLOW EVAL.
[2017-10-26 16:27] LABS: ANION GAP 15.1 (8-16); CARBON DIOXIDE 22.4 mmol/L (21-32); CHLORIDE 127 mmol/L (98-107); CREATININE 2.2 mg/dL (0.7-1.3); GLUCOSE 164 mg/dL (74-106); POTASSIUM 3.5 mmol/L (3.5-5.1); UREA NITROGEN, BLOOD 38 mg/dL (7-18)
--- NOTE | 2017-10-26 16:29 | NUR ---
* ST NOTE * Pt seen at bedside w/RT present. Pt alert, cooperative and engaged throughout session, reporting no c/o pain at this time. Bedside dysphagia and oral mechanism exams completed. See evaluation report for further details. Pt tolerating 5/5 alternating PO trials of puree apple sauce 3-5 CCs at a time via a spoon, as well as 6/6 alternating PO trials of honey-thick apple juice 3-5 CCs at a time via a spoon, all w/o s/s of aspiration. Pt exhibiting breathy vocal quality potentially 2/2 to respiratory failure as well as demonstrating wheezing during PO intake. Pt and caregiver/nsg education completed regarding safe swallow compensatory strategies pt and caregivers/nsg could utilize to aid pt w/swallow function w/pt and caregivers/nsg verbalizing understanding and agreement w/clinician's recommendations. It is thus recommended pt's PO diet consistency be modified from NPO to PUREE TEXTURES W/HONEY-THICK LIQUIDS FOR ALL MEALS requiring strict aspiration precautions during PO intake, w/pt and caregivers/nsg verbalizing understanding and agreement as well. No further ST follow up recommended at this time. Pt and caregiver/nsg education completed regarding results of evaluation; benefits of abiding by aspiration precautions and recommended PO diet consistency; and prognosis for improvement; with pt and caregivers/nsg verbalizing understanding and agreement. Recommend: - PO diet consistency of PUREE TEXTURES W/HONEY-THICKENED LIQUIDS for all meals - STRICT ASPIRATION PRECAUTIONS 2/2 to respiratory failure - Suction PRN - If pt exhibits s/s of aspiration or choking during PO intake, stop PO intake immediately - Pt requires total assistance w/feeding - Feeder to SIT PT UP @80-90 DEGREE ANGLE DURING PO INTAKE, FEED PT SLOWLY, ALTERNATING BTWN SOLIDS & LIQUIDS, & UTILIZING SMALL BITES/SIPS No further ST follow up recommended at this time. G8996 CK G8997 CJ G8998 CJ NOMS Level 3 Time In/Out 15:55 - 16:25
[2017-10-26 16:32] LABS: SODIUM SERUM 161 mmol/L (136-145)
[2017-10-26] MEDS: DEXTROSE 5% 1,000 ML IV SCH ×2 (17:02→19:25)
--- NOTE | 2017-10-26 17:25 | NUR ---
FAMILY PRESENT AT BEDSIDE.
[2017-10-26] MEDS ORDERED: DEXT 5% / NACL 0.45% 1,000 ML IV SCH (17:30)
--- NOTE | 2017-10-26 19:12 | NUR ---
ENDORSED CARE TO MARY SIDDIQUI. PT IN STABLE CONDITION.
--- NOTE | 2017-10-26 19:30 | NUR ---
ASSUMED CARE OF PT.INITIAL ASSESSMENT COMPLETED.PT AWAKE;ABLE TO FOLLOW SIMPLE COMMANDS.SR ON MONITOR.PERIPHERAL IV TO LT HAND LEAKING,.WILL REINSERT.ON 02NC AT 2LPM/NO SOB NOTED.02 SAT 98%.PT ON REGULAR PUREED DIET.ABLE TO SWALLOW NECTAR CONSISTENCY WATER WITHOUT DIFFICULTY.WITT CATHETER INTACT DRAINING SMALL AMT OF YELLOW URINE.W/SCAB TO RT KNEE.NO DRAINAGE NOTED AT THIS TIME.DENIES PAIN
[2017-10-26] MEDS: FERROUS SULFATE 300 MG/5 ML UDC GT SCH (21:07)
[2017-10-26] MEDS: INSULIN LISPRO SLIDING SCALE 100 UNITS/ML VIAL SUBQ PRN (21:09)
[2017-10-26] MEDS: BLOOD GLUCOSE MONITORING 1 DEV DEV FS SCH (21:10)
--- NOTE | 2017-10-26 22:00 | NUR ---
PT ASLEEP.NO S/SX OF RESP DISTRESS NOTED.WILL CONTINUE TO CLOSELY MONITOR PT
--- NOTE | 2017-10-26 23:12 | NUR ---
PATIENT WOULDOT KEEP HHNTX ON. PT FIGHTS. PT REFUSES MARY SIDDIQUI ALSO. PT REFUSED
[2017-10-27] VITALS (16 sets, daily range): BP systolic 95–145; BP diastolic 39–84
--- NOTE | 2017-10-27 | NUR ---
PHONE CALL TO DR SULLIVAN;NOTIFIED THAT PT BECAME VERY CONFUSED.REMOVING 02 AND PULLING IV; ORDERED BILATERAL SOFT WRIST RESTRAINTS. PHONE CALL TO PTS FAMILY,CALLED ZEFERINO ROJO;PTS DAUGHTER, NO ANSWER,CANT LEAVE A MESSAGE.PHONE CALL MADE TO DELPHINE OLGUIN.EXPLAINED TO HIM THE NEED FOR RESTRAINTS; PHONE CONSENT OBTAINED WITNESSED BY MARY CASTANO.
--- NOTE | 2017-10-27 01:08 | NUR ---
0100 WAS ABLE TO FINISH GIVING HHNTX THAT PT REFUSED EARLIER
--- NOTE | 2017-10-27 01:47 | NUR ---
0140 PLACED PT ON BIPAP
--- NOTE | 2017-10-27 02:00 | NUR ---
PT STILL RESTLESS/CONFUSED. STILL WITH BILATERAL SOFT WRIST RESTRAINTS.NO INJURIES NOTED.NO PAIN NOTED.STILL ON BIPAP
[2017-10-27] MEDS: IPRATROPIUM 0.02% 0.5 MG/2.5 ML NEBU INH SCH ×6 (03:08→23:00)
[2017-10-27] MEDS: ALBUTEROL 0.083% 2.5 MG/3 ML NEBU INH SCH ×6 (03:08→23:00)
[2017-10-27] MEDS: DEXTROSE 5% 1,000 ML IV SCH ×3 (03:15→20:14)
--- NOTE | 2017-10-27 04:29 | NUR ---
PTS CONDITION REMAINS UNCHANGED.STILL ON BIPAP 02SAT 99% AT THIS TIME.NO S/SX OF PAIN NOTED.
[2017-10-27] MEDS: PIPER/TAZO 2.25GM/D5W PREMIX 50 ML IV SCH ×3 (05:15→20:14)
[2017-10-27] MEDS: methylPREDNISolone SS 125 MG/2 ML VIAL IVP SCH ×2 (05:15→12:03)
--- NOTE | 2017-10-27 05:50 | NUR ---
MORNING CARE DONE.PT STILL ON BIPAP.STILL WITH BILATERAL SOFT WRIST RESTRAINTS.NO INJURIES NOTED.
[2017-10-27 06:03] LABS: BASOPHILS # (AUTO) 0.1 K/uL (0.00-0.22); BASOPHILS % (AUTO) 0.9 % (0.0-2.0); EOSINOPHILS # (AUTO) 0.1 K/uL (0-0.4); EOSINOPHILS % (AUTO) 0.7 % (0.0-4.0); HEMATOCRIT 24.2 % (36-52); HEMOGLOBIN 7.6 g/dL (12.0-18.0); LYMPHOCYTES # (AUTO) 0.5 K/uL (2.0-11.5); LYMPHOCYTES % (AUTO) 5.6 % (20.5-51.1); MEAN CORPUSCULAR HEMOGLOBIN 24 pg (27-31); MEAN CORPUSCULAR HGB CONC 31 g/dL (33-37); MEAN CORPUSCULAR VOLUME 76 fL (80-94); MONOCYTES # (AUTO) 0.2 K/uL (0.8-1.0); MONOCYTES % (AUTO) 2.4 % (1.7-9.3); NEUTROPHILS # (AUTO) 7.5 K/uL (1.8-7.7); NEUTROPHILS % (AUTO) 90.4 % (42.2-75.2); PLATELET COUNT (AUTO) 286 K/uL (140-450); RED BLOOD CELL COUNT(AUTO) 3.18 MIL/uL (4.20-6.10); RED CELL DISTRIBUTION WIDTH 19.1 % (11.6-13.7)
[2017-10-27 06:17] LABS: ANION GAP 11.6 (8-16); CARBON DIOXIDE 23.1 mmol/L (21-32); CHLORIDE 123 mmol/L (98-107); CREATININE 1.9 mg/dL (0.7-1.3); GLUCOSE 201 mg/dL (74-106); SODIUM SERUM 155 mmol/L (136-145); UREA NITROGEN, BLOOD 35 mg/dL (7-18)
[2017-10-27 06:25] LABS: POTASSIUM 2.7 mmol/L (3.5-5.1)
[2017-10-27 06:35] LABS: WHITE BLOOD COUNT (AUTO) 8.4 K/uL (4.8-10.8)
--- NOTE | 2017-10-27 07:00 | NUR ---
RECIVED PT ON BIPAP WITH SETTINGS CHARTED BREATH SOUNDS PRESENT BILAT WITH SETTINGS CHARTED PT SEEMS TO BE JAYSON BIPAP WELL AMBU BAG AT BEDSIDE VENT PLUGGED INTO RED OUTLET
[2017-10-27] MEDS ORDERED: KCL 20 MEQ/WATER INJ PREMIX 100 ML IV SCH (07:44)
[2017-10-27] MEDS ORDERED: POTASSIUM CHLORIDE 20% 40 MEQ/15 ML UDC PO SCH (07:44)
--- NOTE | 2017-10-27 07:45 | NUR ---
AWAKE,CALM AND COOPERATIVE AT THIS TIME. FOLLOWS COMMANDS. ON BIPAP 12/, FI02 30%. NO RESP. DISTRESS NOTED. YARN EXAMINER SHOWS SR WITHOUT ECTOPICS. FC INTACT AND PATENT DRAINING YELLOW URINE ADEQUATE AMT. SCDS TO LOWER EXT. COVADERM OVER SCAB ON RLE DRY AND INTACT.
[2017-10-27] MEDS ORDERED: HYDROmorphone PFS 2 MG/ML SYR IVP PRN (07:46)
[2017-10-27] MEDS: BLOOD GLUCOSE MONITORING 1 DEV DEV FS SCH ×4 (08:29→20:17)
--- NOTE | 2017-10-27 08:30 | NUR ---
FED BREAKFAST. PUREED DIET. ATE YOGURT WITHOUT DIFF. REFUSED TO EAT ANYMORE.
[2017-10-27] MEDS: INSULIN LISPRO SLIDING SCALE 100 UNITS/ML VIAL SUBQ PRN ×4 (08:32→20:16)
[2017-10-27] MEDS ORDERED: LEVOFLOXACIN 500 MG/D5W PREMIX 100 ML IV SCH (09:00)
[2017-10-27] MEDS: FERROUS SULFATE 300 MG/5 ML UDC GT SCH ×2 (09:11→20:12)
[2017-10-27] MEDS: LACTOBACILLUS RHAMNOSUS GG 1 EACH CAP PO SCH (09:12)
[2017-10-27] MEDS: MUPIROCIN 2% OINT 22 GM TUBE TP SCH (09:13)
--- NOTE | 2017-10-27 09:13 | NUR ---
GIVEN KCL 40 MEQ LIQUID MIXED IN THICKENED APPLE JUICE. PT. SPIT OUT MEDS. COUGHING A LOT AFTER. SUCTIONED ORALLY. HOB UPRIGHT.
[2017-10-27] MEDS: CHLORHEXADINE GLUC 2% CLOTH TP SCH (09:14)
--- NOTE | 2017-10-27 09:19 | NUR ---
REMOVED PT FRMBIPAP PLACED ON 2LPM NC RN BEDSIDE TO FEED PT BREAKFEAST PT SPO2 .96 WILL CONTINUE TO MONITOR PT ON 2LPM NC
--- NOTE | 2017-10-27 09:45 | NUR ---
HOSPITAL 02 SHUT OFF X 5 MINUTES PT 02 REPLACED WITH E CYLIDER X 5 MINUTES AND PLACED BACK ON HOSPITAL 02 NO ILL EFFECTS NOTED
[2017-10-27 10:12] LABS: FERRITIN 84 ng/mL (30-400)
--- NOTE | 2017-10-27 11:00 | NUR ---
DAUGHTER ZEFERINO AT BEDSIDE. UPDATED ON PT'S CONDITION.
--- NOTE | 2017-10-27 11:30 | NUR ---
DR. SCOTT HERE TO SEE AND EXAMINE PT. AWARE THAT PO KCL ORDERED NOT TAKEN BY PT.
[2017-10-27] MEDS ORDERED: DEXTROSE 5% IV SCH (12:00)
[2017-10-27] MEDS ORDERED: POTASSIUM CHLORIDE IV SCH (12:00)
[2017-10-27] MEDS ORDERED: LIDOCAINE IV SCH (12:00)
--- NOTE | 2017-10-27 12:00 | NUR ---
NEW IV BAG OF D5W AT 125 ML/HR STARTED.
--- NOTE | 2017-10-27 12:17 | NUR ---
60 MEQ KRIDER STARTED AT 85 ML/HR.
--- NOTE | 2017-10-27 15:42 | NUR ---
CM NOTE CONCURRENT REVIEW FAXED TO [facility] / FAX# [phone], ATTN: ASHLEY #[phone]
--- NOTE | 2017-10-27 16:09 | NUR ---
PT COMBATIVE WHEN REMOVING MASK RX RN AWARE
--- NOTE | 2017-10-27 16:10 | NUR ---
HIT LEFT SIDE RAIL WITH HIS LEFT HAND WHILE TRYING TO RESIST 02 CANNULA. SKIN TEAR NOTED. SKIN TEAR CLEANSED WITH SALINE, PAT DRY VERSTEL DRESSING APPLIED,COVERED WITH DRY DRESSING. WRAPPED WITH KERLIX DRESSING.
--- NOTE | 2017-10-27 16:20 | NUR ---
DR. SULLIVAN PAGED THROUGH HIS OFFICE TO BE NOTIFIED OF SKIN TEAR.
--- NOTE | 2017-10-27 16:45 | NUR ---
DR. ANDERSON CALLED BACK, AWARE OF PT'S SKIN TEAR.
[2017-10-27] MEDS: NACL 0.9% IRR 250 ML BOTTLE IR SCH (16:59)
--- NOTE | 2017-10-27 17:30 | NUR ---
PM CARE DONE. UNCOOPERATIVE AT TIMES. REORIENTED PRN. WITH OCC. BOUTS OF PRODUCTIVE COUGH THICK WHITISH SECRETIONS.,
--- NOTE | 2017-10-27 18:00 | NUR ---
DAUGHTER AT BEDSIDE. PT. REFUSED TO EAT DINNER. FED BY DAUGHTER. JUST ATE 5%. NO DIFF. IN SWALLOWING NOTED.
--- NOTE | 2017-10-27 19:10 | NUR ---
SLEEPING. 02 SAT98% ON RA. REPORT GIVEN TO MARTINE HERNANDEZ.
--- NOTE | 2017-10-27 19:20 | NUR ---
RECEIVED PT FROM AM SHIFT, PT IS SLEEPING EASY TO AWAKE. PT ON ROOM AIR AT THIS TIME WITH O2 SAT 96%.PT IS [place] SPEAKING,EPISODE OF CONFUSION NOTED.DENIES ANY PAIN AT THIS TIME. SR ON MONITOR. MOIRA LUNGS SOUND DIMINISH.HOB UP 30-45 DEGREE. IV TO RFA NO 22 WITH DEX 5 % IN WATER RUNNING AT 125 ML/HR JAYSON WELL.NO S/S OF FLUIDS OVER LOAD NOTED. PT ON PUREED DIET WITH ASPIRATION PRECAUTION.SKIN WARM TO TOUCH. ABD SOFT NON DISTENDED.SKIN NON INTACT WITH SKIN TEAR TO LEFT HAND,SCABS TO RIGHT LOWER EXTREMITY,ECCHYMOSIS BUE.DRYNESS BLE.F/C IN PLACE WITH YELLOW CLEAR URINE DRAIN BY GRAVITY.GENTLE CARE GIVEN. KEPT CLEAN AND DRY.CALL LIGHT IN REACH.
[2017-10-27] MEDS: methylPREDNISolone SS 40 MG/ML VIAL IVP SCH (20:13)
--- NOTE | 2017-10-27 20:30 | NUR ---
BLOOD SUGAR 161=2 UNITS HUMALOG GIVEN ORDER. ALL NIGHT MEDS GIVEN ORDER TOLERATED WELL.
--- NOTE | 2017-10-27 21:00 | NUR ---
O2 SAT DOWN TO 89 GIVE OXYGEN AT 2LPM VIA N/C TOLERATING WELL.
--- NOTE | 2017-10-27 22:30 | NUR ---
PT SLEEPING WELL,NO S/S OF RESP DISTRESS. SPO2 98%.
[2017-10-28] VITALS (8 sets, daily range): BP systolic 91–120; BP diastolic 46–66
--- NOTE | 2017-10-28 00:15 | NUR ---
PT SLEEPING WELL, NO S/S OF PAIN AND NO S/S OF ANY DISTRESS.
--- NOTE | 2017-10-28 02:00 | NUR ---
REPOSITION PT FOR COMFORT.
[2017-10-28] MEDS: ALBUTEROL 0.083% 2.5 MG/3 ML NEBU INH SCH ×5 (02:42→19:35)
[2017-10-28] MEDS: IPRATROPIUM 0.02% 0.5 MG/2.5 ML NEBU INH SCH ×5 (02:42→19:35)
--- NOTE | 2017-10-28 04:30 | NUR ---
AM CARE GIVEN,SPONGE BATH AND F/C CARE GIVEN TOLERATED WELL. 1200 CC YELLOW CLEAR URINE DRAIN BY GRAVITY.
--- NOTE | 2017-10-28 05:30 | NUR ---
MORNING MEDS GIVEN TOLERATED WELL.
[2017-10-28] MEDS: PIPER/TAZO 2.25GM/D5W PREMIX 50 ML IV SCH ×3 (05:31→21:00)
[2017-10-28] MEDS: DEXTROSE 5% 1,000 ML IV SCH ×3 (05:32→23:59)
[2017-10-28 06:14] LABS: BASOPHILS # (AUTO) 0.1 K/uL (0.00-0.22); BASOPHILS % (AUTO) 0.6 % (0.0-2.0); EOSINOPHILS % (AUTO) 0.2 % (0.0-4.0); HEMATOCRIT 25.4 % (36-52); HEMOGLOBIN 7.9 g/dL (12.0-18.0); LYMPHOCYTES # (AUTO) 0.5 K/uL (2.0-11.5); LYMPHOCYTES % (AUTO) 5.9 % (20.5-51.1); MEAN CORPUSCULAR HEMOGLOBIN 24 pg (27-31); MEAN CORPUSCULAR HGB CONC 31 g/dL (33-37); MEAN CORPUSCULAR VOLUME 76 fL (80-94); MONOCYTES # (AUTO) 0.2 K/uL (0.8-1.0); MONOCYTES % (AUTO) 2.1 % (1.7-9.3); NEUTROPHILS # (AUTO) 8.3 K/uL (1.8-7.7); NEUTROPHILS % (AUTO) 91.2 % (42.2-75.2); PLATELET COUNT (AUTO) 271 K/uL (140-450); RED BLOOD CELL COUNT(AUTO) 3.35 MIL/uL (4.20-6.10); RED CELL DISTRIBUTION WIDTH 19.3 % (11.6-13.7); WHITE BLOOD COUNT (AUTO) 9.1 K/uL (4.8-10.8)
[2017-10-28] MEDS: BLOOD GLUCOSE MONITORING 1 DEV DEV FS SCH ×4 (07:14→21:34)
[2017-10-28] MEDS: INSULIN LISPRO SLIDING SCALE 100 UNITS/ML VIAL SUBQ PRN ×2 (07:15→12:09)
--- NOTE | 2017-10-28 07:20 | NUR ---
REPORT GIVEN TO MISTY HERNANDEZ AM SHIFT. PT IS STABLE AT THIS TIME.
[2017-10-28 07:26] LABS: ANION GAP 11.6 (8-16); CARBON DIOXIDE 24.2 mmol/L (21-32); CHLORIDE 114 mmol/L (98-107); CREATININE 1.6 mg/dL (0.7-1.3); GLUCOSE 227 mg/dL (74-106); SODIUM SERUM 147 mmol/L (136-145); UREA NITROGEN, BLOOD 27 mg/dL (7-18)
[2017-10-28 07:28] LABS: MAGNESIUM 1.7 mg/dL (1.8-2.4); PHOSPHORUS 1.8 mg/dL (2.5-4.9)
--- NOTE | 2017-10-28 07:30 | NUR ---
REPORT RECEIVED FROM NIGHT NURSE. PT IS AWAKE AND ALERT, [place] SPEAKING, COOPERATIVE. SR ON MONITOR. PT IS ON O2 2LPM/NC, O2 SAT 98%, BILATERAL LUNGS SOUND DIMINISHED. PERIPHERAL IV G 22 TO RIGHT FOREARM PATENT AND INTACT, INFUSING D5 AT 125 ML/HR. ABDOMEN SOFT, NONTENDER, BOWEL SOUNDS PRESENT. ON PUREE DIET WITH ASPIRATION PRECAUTION. HOB 30-[address] CATH IN PLACE DRAINING LIGHT YELLOW URINE. DRESSINGS TO LEFT HAND SKIN TEAR AND RIGHT LEG SCAB CLEAN, DRY AND INTACT. ECCHYMOSIS NOTED ON BUE. SCDS IN PLACE FOR VTE PROPHYLAXIS. BED IN LOW POSITION AND CALL LIGHT WITHIN REACH. WILL CONTINUE TO MONITOR.
[2017-10-28 07:36] LABS: POTASSIUM 2.8 mmol/L (3.5-5.1)
--- NOTE | 2017-10-28 07:40 | NUR ---
DR. CAMPOS MADE AWARE OF K = 2.8, CA = 7.1 AND PO4 = 1.8. ORDERS RECEIVED.
--- NOTE | 2017-10-28 08:15 | NUR ---
DAUGHTER, ZEFERINO AT BEDSIDE AND WAS UPDATED ON PT.
[2017-10-28] MEDS: LACTOBACILLUS RHAMNOSUS GG 1 EACH CAP PO SCH (08:36)
[2017-10-28] MEDS: FERROUS SULFATE 300 MG/5 ML UDC GT SCH ×2 (08:36→21:28)
[2017-10-28] MEDS: methylPREDNISolone SS 40 MG/ML VIAL IVP SCH ×2 (08:37→21:29)
[2017-10-28] MEDS: MUPIROCIN 2% OINT 22 GM TUBE TP SCH (08:38)
[2017-10-28] MEDS: CHLORHEXADINE GLUC 2% CLOTH TP SCH (08:38)
[2017-10-28] MEDS ORDERED: POTASSIUM CHLORIDE 20 MEQ, LIDOCAINE 1% 25 MG in NACL 0.9% 250 ML IV SCH (09:00)
--- NOTE | 2017-10-28 09:05 | NUR ---
MEDICATIONS ADMINISTERED. PT TOLERATED WELL.
--- NOTE | 2017-10-28 09:25 | NUR ---
WOUND CARE EVALUATION NOTE: REASON FOR EVALUATION: LOW ESTRELLITA SCORE COMPLETE SKIN ASSESSMENT DONE ON THIS 82 Y/O MALE PATIENT ADMITTED TO [facility], WITH INITIAL DIAGNOSIS OF DIFFICULTY SWALLOWING. PAST MEDICAL HISTORY INCLUDES COPD, HTN AND GERD. ALL ABOVE INFORMATION WAS OBTAINED FROM THE ADMISSION H&P. LABS ARE WBC 9.1, H/H 7.9/25.4, GLUCOSE 227, ALBUMIN 1.8, PT/INR 12.1/1.2 AND PTT 31.9. MEDS INCLUDE PIPERACILLIN, INSULIN, MUPIROCIN AND METHYLPREDNISOLONE. PATIENT IS AWAKE, SKIN WARM TO TOUCH WNL, TOENAILS ARE SHORT AND THICKENED, FUNGALLY LOOKING, NO HAIR GROWTH, BLE ARE DRY AND FLAKY, BILATERAL PEDAL PULSES PRESENT. FC 16FR PATENT AND INTACT TO CLEAR YELLOW COLORED URINE IN MODERATE AMOUNT. INITIAL PLAN OF CARE DISCUSSED WITH PRIMARY RN INTEGUMENTARY: OLD HEALED SCAR BELOW UMBILICUS SACRALCOCCYX OLD HEALED SCAR LEFT HAND SKIN TEAR DRESSING DRY ,CLEAN AND INTACT BUE- MULTIPLE ECCHYMOSIS, SKIN INTACT BLE - DRY AND FLAKY SKIN RECOMMENDATIONS: -CLEANSE LEFT HAND SKIN TEAR WITH NS. PAT DRY APPLY VERSATEL DRESSING, COVER WITH DRY DRESSING CHANGE Q7 DAYS AND PRN IF SOILING -APPLY SKIN PREP TO BILATERAL UPPER EXTREMITIES ECCHYMOSIS AREAS QD AND YARROW GATHERER -TURN AND REPOSITION PATIENT Q 2H -OFFLOAD BILATERAL HEELS BY PLACING PILLOWS UNDER CALVES AT ALL TIMES, UNLESS OTHERWISE CONTRAINDICATED -PRESSURE REDISTRIBUTION SURFACE THERAPY -KEEP SKIN CLEAN AND DRY AT ALL TIMES. RECOMMENDATIONS DISCUSSED WITH PRIMARY RN WILL FOLLOW UP PATIENT Q7-10 DAY AND PRN. PLEASE CONTACT WOUND CARE NURSE FOR ANY CONCERNS, QUESTIONS AND CHANGES IN SKIN CONDITION. Addendum: 10/28/17 at 1023 by David Rodriguez RN (Grace) CN STARTED SKIN TEAR TX 10/27/17, NEXT TX WILL BE ON 11/03/2017 OR PRN IF SOILING
[2017-10-28] MEDS: SODIUM PHOS / POTASSIUM PHOS 1 PKT PDR PO SCH ×3 (09:44→17:52)
--- NOTE | 2017-10-28 10:45 | NUR ---
REPORT GIVEN TO KATHLEEN AT TELEMETRY FOR TRANSFER.
--- NOTE | 2017-10-28 11:30 | NUR ---
PT RESTING COMFORTABLY. NO SOB OR ACUTE DISTRESS NOTED.
--- NOTE | 2017-10-28 12:45 | NUR ---
PATIENT BROUGHT OVER BY MARY JAY FROM ICU. PATIENT IS ALERT, AWAKE X2. PATIENT IS ON ROOM AIR, RESPIRATORY EFFORT EVEN AND UNLABORED. NO SIGNS AND SYMPTOMS OF DISTRESS NOTED AT THIS TIME. PATIENT IV TO RIGHT FA 22G, INFUSING ZOSYN AT THIS TIME. SITE IS CLEAN, DRY, PATENT AND INTACT. PATIENT HAS A SKIN TEAR ON HIS LEFT HAND, ALREADY HAS CLEAR DRESSING ON IT. DERW WOUND CARE NURSE STATED THAT IT IS GOOD FOR 7 DAYS. ORIENTED PATIENT TO ROOM, DISCUSSED PLAN OF CARE, CALL LIGHT PLACED WITHIN REACH. PATIENT NEEDS REINFORCEMENT. BED IN LOWEST POSITION, SIDERAILS UP X2. WILL CONTINUE TO MONITOR.
--- NOTE | 2017-10-28 12:45 | NUR ---
PT TRANSFERRED TO TELEMETRY. DR. AGUILERA AND MARY ABEBE AT BEDSIDE.
--- NOTE | 2017-10-28 13:00 | NUR ---
Burner Technician contacted [facility] and spoke to A Class Lineman Violet to discuss Patients's status and possible return to facility. A Class Lineman Stated that Patient was in facility for about a month under PT. However, as of 10/24/17 Mireille Jeffery Pull Patient out of facility on an AMA. Burner Technician discuss with case sealer about possible return after Patient Discharge from [facility]. A Class Lineman reported that protocol is that Patients usually can not return after an AMA discharge.
--- NOTE | 2017-10-28 15:00 | NUR ---
FAXED CONCURRENT REVIEW TO [facility] [phone] PHONE ASHLEY [phone]
--- NOTE | 2017-10-28 15:06 | NUR ---
10/28/17 RD FOLLOW UP COMPLETED PLEASE REFER TO PROGRESS NOTES UNDER CARE ACTIVITY FOR ESTIMATED NUTRITIONAL NEEDS. 1. CONTINUE PUREE DIET WITH HONEY THICKENED LIQUIDS TOLERATED PER MD 2. ENCOURAGE INCREASED PO INTAKES -PT MEETING <20% OF ESTIMATED KCAL AND PROTEIN NEEDS WITH CURRENT PO INTAKE 3. RECOMMEND ADDING PROSOURCE TID TO AID IN INCREASED KCAL AND PROTEIN CONSUMPTION 4. RD TO FOLLOW-UP 2-3 DAYS, HIGH RISK HETAL [address]
--- NOTE | 2017-10-28 15:11 | NUR ---
Career Services Director attempted to contact Patients Daughter Concepcion Jeffery at [phone] to discuss plan for patient upon discharge. Mrs. Jeffery did not respond and limehouse worker was unable to live a message due to full voice mail.
[2017-10-28] MEDS ORDERED: KCL 20 MEQ/WATER INJ PREMIX 200 ML IV SCH (15:15)
--- NOTE | 2017-10-28 15:20 | NUR ---
Lumber Planer met with Patient and patient's daughter Concepcion Jeffery at bedside. Both Afghan Speaking. Patient was sleeping at the time. Concepcion stated that father was doing better and explained to Lumber Planer that he was in really bad shape when he arrived in the hospital. Lumber Planer asked Concepcion what is patient's plan of care after discharge. Concepcion reported that she would like to send father to another facility due to not feeling satisfied with previous facility for father to go back. She reported that she is unable to take patient home with her and would like try another place such as [facility] or [facility]. Per Patient's daughter Concepcion Jeffery she has spoken to his health provider Johnny GARCIA. and that he will be assisting her with getting father into a new facility. Lumber Planer Explained to Concepcion that Patient needs a plan on place before discharge, educated her on process and her need to prepare and call places that can possible take patient for next level of care. She expressed understanding and requested some information about places that she can contact and start looking for acomodations that will meet needs of Patient after discharge. painting trades worker provided Mrs. Jeffery with a list of [facility] facilities. She stated having no more questions and concerns. painting trades worker will follow up as needed.
--- NOTE | 2017-10-28 16:50 | NUR ---
DINH CAMARENA PER ORDER. PATIENT ON TELE MONITOR. WILL CONTINUE TO MONITOR.
--- NOTE | 2017-10-28 17:10 | NUR ---
PATIENT COMPLAINING THAT HIS ARM WITH IV HURTS. EXPLAINED TO HIM THAT IT IS THE POTASSIUM. HE KEPT SAYING THAT IT HURTS SO I STOPPED IV AND PAGED DR SCOTT. AWAITING RESPONSE FROM DOCTOR.
[2017-10-28] MEDS ORDERED: MAG SULF 2000 MG/WATER PREMIX 50 ML IV SCH (19:00)
--- NOTE | 2017-10-28 19:20 | NUR ---
RECEIVED REPORT FROM DAY RN, PATIENT RESTING IN BED, AWAKE ALERT ORIENTED X2, NO S/S OF DISTRESS NOTED, RESPIRATION EVEN AND UNLABORED, IV PATENT AND INTACT, INFUSING MAGNESIUM AT 25ML/HR. WITT IN PLACE, DRAINING URINE BY GRAVITY. CALL LIGHT WITHIN REACH, SAFETY MEASURE ENSURED, WILL CONTINUE TO MONITOR.
--- NOTE | 2017-10-28 19:20 | NUR ---
ENDORSED PATIENT TO SUPERVISOR HEAT TREATING RN FOR CONTINUITY OF CARE. PATIENT IN STABLE CONDITION.
[2017-10-28] MEDS ORDERED: POTASSIUM CHLORIDE 20% 40 MEQ/15 ML UDC GT SCH (20:30)
--- NOTE | 2017-10-28 20:59 | NUR ---
PATIENT STILL REFUSE POTASSIUM CHL 20MEQ BECAUSE IT HURTS HIM. EDUCATION PROVIDED ON THE IMPORTANCE OF HAVING POTASSIUM, PATIENT STILL REFUSED. DR. CAO IS AWARE. RECEIVED ORDER OF POTASSIUM 20% 40MG/15ML PO ONCE NOW AND POTASSIUM 40MG PO 7AM TOMORROW.
[2017-10-28] MEDS ORDERED: PIPERACILLIN/TAZOBACTAM 2.25 GM VIAL IV ONE (21:46)
--- NOTE | 2017-10-28 22:11 | NUR ---
DUE MEDICATION GIVEN, PATIENT TOLERATED WELL. NO S/S OF DISTRESS NOTED, CALL LIGHT WITHIN REACH, SAFETY MEASURE ENSURED, WILL CONTINUE TO MONITOR.
[2017-10-29] VITALS: BP 128/56
--- NOTE | 2017-10-29 00:33 | NUR ---
PATIENT IS SLEEPING, NO CHANGE OF CONDITION, VITAL SIGNS STABLE. RESPIRATION EVEN AND UNLABORED, CALL LIGHT WITHIN REACH ,SAFETY MEASURE ENSURED, WILL CONTINUE TO MONITOR.
--- NOTE | 2017-10-29 02:45 | NUR ---
NEW IV 24G STARTED ON LT WRIST, PATIENT TOLERATED WELL, OLD IV CATHETER TAKEN OUT, TIP INTACT, NO ACTIVE BLEEDING AT THE IV SITE. WILL CONTINUE TO MONITOR.
[2017-10-29 04:00] VITALS: BP 115/60
[2017-10-29] MEDS: PIPER/TAZO 2.25GM/D5W PREMIX 50 ML IV SCH ×3 (04:50→20:42)
[2017-10-29] MEDS ORDERED: PIPERACILLIN/TAZOBACTAM 2.25 GM VIAL IV ONE (04:51)
--- NOTE | 2017-10-29 04:56 | NUR ---
DUE MEDICATION GIVEN, PATIENT TOLERATED WELL. NO S/S OF DISTRESS NOTED, RESPIRATION EVEN AND UNLABORED, WILL CONTINUE TO MONITOR.
[2017-10-29] MEDS ORDERED: METH4TAB1 PO (06:15)
[2017-10-29] MEDS: BLOOD GLUCOSE MONITORING 1 DEV DEV FS SCH ×4 (06:42→20:24)
--- NOTE | 2017-10-29 06:47 | NUR ---
DUE MEDICATION GIVEN PATIENT TOLERATED WELL. NO S/S OF DISTRESS NOTED, RESPIRATION EVEN AND UNLABORED, WILL CONTINUE TO MONITOR.
[2017-10-29] MEDS: INSULIN LISPRO SLIDING SCALE 100 UNITS/ML VIAL SUBQ PRN ×4 (06:49→22:02)
[2017-10-29] MEDS ORDERED: POTASSIUM CHLORIDE 20% 40 MEQ/15 ML UDC GT SCH (07:00)
[2017-10-29 07:06] LABS: BASOPHILS # (AUTO) 0.1 K/uL (0.00-0.22); BASOPHILS % (AUTO) 0.5 % (0.0-2.0); EOSINOPHILS % (AUTO) 0.1 % (0.0-4.0); HEMATOCRIT 28.8 % (36-52); LYMPHOCYTES # (AUTO) 0.6 K/uL (2.0-11.5); LYMPHOCYTES % (AUTO) 5.3 % (20.5-51.1); MEAN CORPUSCULAR HEMOGLOBIN 24 pg (27-31); MEAN CORPUSCULAR HGB CONC 31 g/dL (33-37); MEAN CORPUSCULAR VOLUME 76 fL (80-94); MONOCYTES # (AUTO) 0.4 K/uL (0.8-1.0); MONOCYTES % (AUTO) 3.4 % (1.7-9.3); NEUTROPHILS # (AUTO) 9.5 K/uL (1.8-7.7); NEUTROPHILS % (AUTO) 90.7 % (42.2-75.2); PLATELET COUNT (AUTO) 312 K/uL (140-450); RED BLOOD CELL COUNT(AUTO) 3.79 MIL/uL (4.20-6.10); RED CELL DISTRIBUTION WIDTH 19.6 % (11.6-13.7); WHITE BLOOD COUNT (AUTO) 10.6 K/uL (4.8-10.8)
[2017-10-29 07:17] LABS: ANION GAP 12.3 (8-16); CHLORIDE 112 mmol/L (98-107); CREATININE 1.3 mg/dL (0.7-1.3); GLUCOSE 189 mg/dL (74-106); POTASSIUM 3.3 mmol/L (3.5-5.1); SODIUM SERUM 145 mmol/L (136-145); UREA NITROGEN, BLOOD 24 mg/dL (7-18)
--- NOTE | 2017-10-29 07:30 | NUR ---
ENDORSED PLAN OF CARE TO DAY RN, PATIENT IS IN STABLE CONDITION, NO S/S OF DISTRESS NOTED.
--- NOTE | 2017-10-29 07:31 | NUR ---
RECEIVED REPORT FROM PIE CRIMPING MACHINE OPERATOR NURSE. PATIENT SLEEPING, AROUSABLE BY VOICE. IN STABLE CONDITION. NO DISTRESS NOTED. DENIES ANY PAIN. RESPIRATIONS EVEN, UNLABORED, ON ROOM AIR WITH O2 SAT AT 97&. AAOX2, CALM, COOPERATIVE, SKIN COLOR APPROPRIATE TO ETHNICITY, WARM TO TOUCH. HAS LEFT HAND SKIN TEAR, DRESSING IS DRY AND INTACT. WITT CATHETER IN PLACE, INTACT AND PATENT, DRAINING CLOUDY, YELLOW URINE. LUNGS HAVE WHEEZING THROUGHOUT ALL LOBES. NO GTUBE IN PLACE. ABDOMEN SOFT, NON-DISTENDED. IV SITE IS INTACT, PATENT, AND INFUSING IVF PER ORDERS. REVIEWED PLAN OF CARE WITH PATIENT. PATIENT VERBALIZED UNDERSTANDING, REINFORCEMENT NEEDED. SAFETY MEASURES IN PLACE, CALL LIGHT WITHIN REACH, FALL PRECAUTIONS IN PLACE. WILL CONTINUE TO MONITOR.
[2017-10-29] MEDS: ALBUTEROL 0.083% 2.5 MG/3 ML NEBU INH SCH ×3 (07:43→20:08)
[2017-10-29] MEDS: IPRATROPIUM 0.02% 0.5 MG/2.5 ML NEBU INH SCH ×3 (07:43→20:09)
[2017-10-29 08:00] VITALS: BP 118/61
[2017-10-29] MEDS ORDERED: POTASSIUM CHLORIDE 10 MEQ TABER PO SCH (09:16)
[2017-10-29] MEDS: SODIUM PHOS / POTASSIUM PHOS 1 PKT PDR PO SCH ×3 (09:50→17:32)
[2017-10-29] MEDS: CHLORHEXADINE GLUC 2% CLOTH TP SCH (09:51)
[2017-10-29] MEDS: LACTOBACILLUS RHAMNOSUS GG 1 EACH CAP PO SCH (09:51)
[2017-10-29] MEDS: methylPREDNISolone SS 40 MG/ML VIAL IVP SCH ×2 (09:51→20:40)
[2017-10-29] MEDS: FERROUS SULFATE 300 MG/5 ML UDC GT SCH ×2 (09:51→20:25)
--- NOTE | 2017-10-29 09:55 | NUR ---
PATIENT LYING IN BED SLEEPING. AT BEDSIDE. ECHO COMPLETED BY RADIOLOGIST. NO DISTRESS NOTED. FLAC 0. CONDITION UNCHANGED. SCHEDULED MEDICATIONS DUE GIVEN. SAFETY MEASURES IN PLACE, CALL LIGHT WITHIN REACH. WILL CONTINUE TO MONITOR.
[2017-10-29] MEDS: MUPIROCIN 2% OINT 22 GM TUBE TP SCH (10:14)
--- NOTE | 2017-10-29 10:57 | NUR ---
CALLED AND LEFT MESSAGE FOR DAUGHTER ZEFERINO REGARDING DISCHARGE AND PLACEMENT. AWAITING CALL BACK.
[2017-10-29 12:00] VITALS: BP 114/60
--- NOTE | 2017-10-29 12:15 | NUR ---
PATIENT LYING IN BED SLEEPING, AROUSABLE BY VOICE. AT BEDSIDE. NO DISTRESS NOTED. FLACC 0. CONDITION UNCHANGED. SCHEDULED MEDICATIONS DUE. REPOSITIONED PATIENT. SAFETY MEASURES IN PLACE, CALL LIGHT WITHIN REACH. WILL CONTINUE TO MONITOR.
[2017-10-29] MEDS: DEXTROSE 5% 1,000 ML IV SCH (12:33)
--- NOTE | 2017-10-29 15:08 | NUR ---
PATIENT LYING IN BED SLEEPING, AROUSABLE BY VOICE. NO DISTRESS NOTED. RESPIRATIONS EVEN, UNLABORED, ON ROOM AIR. CONDITION UNCHANGED. ASSISTED THE GUARD CAPTAIN REPOSITION THE PATIENT. IV SITE PATENT AND INFUSING IVF PER ORDERS. WITT CATHETER IN PLACE, PATENT. SAFETY MEASURES IN PLACE, CALL LIGHT WITHIN REACH. WILL CONTINUE TO MONITOR.
--- NOTE | 2017-10-29 15:51 | NUR ---
[facility] V60 BIPAP REMAINS IN ROOM
[2017-10-29 16:00] VITALS: BP 113/51
--- NOTE | 2017-10-29 17:35 | NUR ---
PATIENT LYING IN BED WATCHING TV WITH DAUGHTER AT BEDSIDE. NO DISTRESS NOTED. RESPIRATIONS EVEN, UNLABORED, ON ROOM AIR. CONDITION UNCHANGED. SCHEDULED MEDICATIONS DUE GIVEN. DISCUSSED PLAN OF CARE WITH DAUGHTER, ZEFERINO AT BEDSIDE. NOTIFIED DAUGHTER THAT PATIENT IS ABLE TO GO HOME TODAY. DAUGHTER WANTS PATIENT TO GO TO [facility] THAT IS COVERED BY PATIENT'S INSURANCE. NOTIFIED DAUGHTER THAT TABLE RUNNER WAS NOT AVAILABLE TODAY FOR ASSISTANCE ON PLACEMENT AND THAT THE TABLE RUNNER WAS GOING TO BE HERE ON TUESDAY. WILL LET TABLE RUNNER KNOW DAUGHTER'S WISHES ON FACILITY PLACEMENT. DAUGHTER VERBALIZES UNDERSTANDING. SAFETY MEASURES IN PLACE, CALL LIGHT WITHIN REACH. WILL CONTINUE TO MONITOR.
--- NOTE | 2017-10-29 18:35 | NUR ---
PATIENT LYING IN BED WATCHING TV WITH DAUGHTER AT BEDSIDE. NO DISTRESS NOTED. DENIES ANY PAIN. CONDITION UNCHANGED. SAFETY MEASURES IN PLACE, CALL LIGHT WITHIN REACH, FALL PREVENTIONS IN PLACE. WILL CONTINUE TO MONITOR.
--- NOTE | 2017-10-29 19:23 | NUR ---
GAVE REPORT TO ESCROW CLOSER NURSE FOR CONTINUITY OF CARE. PATIENT IN STABLE CONDITION.
--- NOTE | 2017-10-29 19:25 | NUR ---
PATIENT IS CURRENTLY RESTING IN BED PATIENT AWAKE ALERT SPEAKS PORTUGUESE. COUGHING BUT NO PHLEGM NOTED AT THS TIME.IVF INFUSING WELL IV SITE PATENT.PATIENT IS CURRENTLY CLEAN AND DRY.HAS SCD'S TO BOTH LOWER EXTREMITIES FOR DVT PROPHALAXIS. WITT CATHETER TO GRAVITY DRAINING WELL YELLOW COLOR URINE.CALL LIGHT WITHIN REACH.FAMILY AT BEDSIDE.
[2017-10-29 20:00] VITALS: BP 114/61
--- NOTE | 2017-10-29 20:00 | NUR ---
Patient's Plan of Care was discussed and reviewed with NURSES ASSISTANT: JAYLA MARTINEZ
--- NOTE | 2017-10-29 20:05 | NUR ---
PATIENT WAS TURNED AND REPOSITIONED PATIENT IS CLEAN AND DRY OFFLOADING DONE WITH PILLOWS.CASING SPLITTER LIBERTY AND CASING SPLITTER RODRIGUEZ ASSIST TO TURN AND REPOSITION THE PATIENT. PATIENT KEPT COMFORTABLE AND NEEDS CONTINUE TO BE MET.PATIENT WANTS LIGHTS TO BE KEPT ON.CALL LIGHT WITHIN REACH FREQUENT VISUAL CHECKS WILL BE DONE.
--- NOTE | 2017-10-29 20:11 | NUR ---
PATIENT IS CURRENTLY ON HIS BREATHING TREATMENTS AND DOING WELL.
--- NOTE | 2017-10-29 20:25 | NUR ---
EDUCATION GIVEN ON HIS ROUTINE MEDS PATIENT VERBALIZES UNDERSTANDING AND TOOK HIS ROUTINE NIGHT MEDS.
--- NOTE | 2017-10-29 22:30 | NUR ---
PATIENT RESTING COMFORTABLE IN BED SLEEPING NO DISTRESS CONTINUES TO BE TURNED AND REPOSITIONED NEEDS MET.
[2017-10-30 00:35] VITALS: BP 139/68
--- NOTE | 2017-10-30 02:35 | NUR ---
PATIENT IS CURRENTLY RESTING IN BED WAS TURNED AND REPOSITIONED WITH THE ASSISTANCE OF LILIAN FRIAS. PATIENT STABLE IN NO DISTRESS HAS NO COMPLAINS OF PAIN NO SOB WILL CONTINUE TO MONITOR.
--- NOTE | 2017-10-30 03:03 | NUR ---
PATIENT SLEEPING WELL KEPT COMFORTABLE.FREQUENT VISUAL CHECKS DONE.
[2017-10-30] MEDS: DEXTROSE 5% 1,000 ML IV SCH ×2 (03:12→17:08)
[2017-10-30 04:00] VITALS: BP 132/65
--- NOTE | 2017-10-30 04:30 | NUR ---
PATIENT RESTING IN BED SLEEPING.TURNED AND REPOSITIONED IVF INFUSING WELL IV SITE PATENT WILL CONTINUE TO MONITOR.
[2017-10-30] MEDS: BLOOD GLUCOSE MONITORING 1 DEV DEV FS SCH ×4 (06:04→21:10)
[2017-10-30] MEDS: INSULIN LISPRO SLIDING SCALE 100 UNITS/ML VIAL SUBQ PRN ×2 (06:10→17:29)
--- NOTE | 2017-10-30 06:51 | NUR ---
PATIENT SLEEPING IN BED IN NO DISTRESS WILL CONTINUE TO MONITOR.IVF INFUSING WELL IV SITE PATENT NO INFILTRATION NOTED.
[2017-10-30] MEDS: ALBUTEROL 0.083% 2.5 MG/3 ML NEBU INH SCH ×3 (07:04→20:00)
[2017-10-30] MEDS: IPRATROPIUM 0.02% 0.5 MG/2.5 ML NEBU INH SCH ×3 (07:04→20:00)
[2017-10-30 07:07] LABS: HEMATOCRIT 31.3 % (36-52); HEMOGLOBIN 10.2 g/dL (12.0-18.0); MEAN CORPUSCULAR HEMOGLOBIN 25 pg (27-31); MEAN CORPUSCULAR HGB CONC 33 g/dL (33-37); MEAN CORPUSCULAR VOLUME 76 fL (80-94); PLATELET COUNT (AUTO) 307 K/uL (140-450); RED BLOOD CELL COUNT(AUTO) 4.13 MIL/uL (4.20-6.10); WHITE BLOOD COUNT (AUTO) 17.5 K/uL (4.8-10.8)
[2017-10-30 07:13] LABS: ANION GAP 12.1 (8-16); CHLORIDE 109 mmol/L (98-107); CREATININE 1.1 mg/dL (0.7-1.3); GLUCOSE 183 mg/dL (74-106); POTASSIUM 3.1 mmol/L (3.5-5.1); SODIUM SERUM 144 mmol/L (136-145); UREA NITROGEN, BLOOD 22 mg/dL (7-18)
--- NOTE | 2017-10-30 07:22 | NUR ---
PATIENT STABLE I PAGED MD CAMPOS WILL WAIT FOR HIS CALL BACK.
--- NOTE | 2017-10-30 07:29 | NUR ---
PATIENT STABLE REPORT ENDORSED TO MARY LOCO.
--- NOTE | 2017-10-30 07:30 | NUR ---
ENDORSED TO MARY LOCO TO FOLLOW UP WITH MD CAMPOS IN REGARDS TO ANTIBIOTICS IF THEY SHOULD BE CONTINUED OR NOT.I PAGED BUT HE HASN'T CALLED BACK YET.
--- NOTE | 2017-10-30 07:31 | NUR ---
MD CAMPOS CALLED ME BACK AND I ASKED HIM IF HE WOULD LIKE THE ZOSYN IV TO BE CONTINUED BECAUSE IT WAS DISCONTINUED. GAVE ORDERS SO NEW ORDERS ENDORSED TO MARY LOCO INCOMING SHIFT.
--- NOTE | 2017-10-30 07:32 | NUR ---
RECEIVED REPORT FROM CREW MESS ATTENDANT NURSE. PATIENT SLEEPING, AROUSABLE BY VOICE. IN STABLE CONDITION. NO DISTRESS NOTED. DENIES ANY PAIN. RESPIRATIONS EVEN, UNLABORED, ON ROOM AIR WITH O2 SAT AT 98%. AAOX2, CALM, COOPERATIVE, SKIN COLOR APPROPRIATE TO ETHNICITY, WARM TO TOUCH. HAS LEFT HAND SKIN TEAR, DRESSING IS DRY AND INTACT. WITT CATHETER IN PLACE, INTACT AND PATENT, DRAINING CLOUDY YELLOW URINE. LUNGS ARE DIMINISHED THROUGHOUT ALL LOBES. NO GTUBE IN PLACE. ABDOMEN SOFT, NON-DISTENDED. IV SITE IS INTACT, PATENT, AND INFUSING IVF PER ORDERS. REVIEWED PLAN OF CARE WITH PATIENT. PATIENT VERBALIZED UNDERSTANDING, REINFORCEMENT NEEDED. SAFETY MEASURES IN PLACE, CALL LIGHT WITHIN REACH, FALL PRECAUTIONS IN PLACE. WILL CONTINUE TO MONITOR.
[2017-10-30 08:00] VITALS: BP 130/66
[2017-10-30 08:24] LABS: BASOPHILS % (MANUAL) 1 % (0-2); EOSINOPHILS % (MANUAL) 0 % (0-4); LYMPHOCYTES % (MANUAL) 9 % (20-46); MONOCYTES % (MANUAL) 2 % (5-12)
[2017-10-30] MEDS: LACTOBACILLUS RHAMNOSUS GG 1 EACH CAP PO SCH (09:00)
--- NOTE | 2017-10-30 09:35 | NUR ---
PATIENT LYING IN BED SLEEPING, AROUSABLE BY VOICE. NO DISTRESS NOTED. DENIES ANY PAIN. CONDITION UNCHANGED. SAFETY MEASURES IN PLACE, CALL LIGHT WITHIN REACH, FALL PREVENTIONS IN PLACE. WILL CONTINUE TO MONITOR.
[2017-10-30] MEDS ORDERED: POTASSIUM CHLORIDE 10 MEQ TABER PO SCH (11:22)
[2017-10-30 12:00] VITALS: BP 128/67
[2017-10-30] MEDS: methylPREDNISolone SS 40 MG/ML VIAL IVP SCH (12:35)
[2017-10-30] MEDS: FERROUS SULFATE 300 MG/5 ML UDC GT SCH ×2 (12:35→21:08)
[2017-10-30] MEDS: NACL 0.9% IRR 250 ML BOTTLE IR SCH (12:36)
[2017-10-30] MEDS: SODIUM PHOS / POTASSIUM PHOS 1 PKT PDR PO SCH (12:37)
[2017-10-30] MEDS: MUPIROCIN 2% OINT 22 GM TUBE TP SCH (12:37)
[2017-10-30] MEDS: CHLORHEXADINE GLUC 2% CLOTH TP SCH (12:39)
--- NOTE | 2017-10-30 12:50 | NUR ---
PATIENT SITTING IN BED WITH LUNCH TRAY IN FRONT. NO DISTRESS NOTED. RESPIRATIONS EVEN, UNLABORED, ON ROOM AIR. WITT CATHETER IS IN PLACE, PATENT, AND INFUSING. SCHEDULED MEDICATIONS DUE GIVEN. IV SITE INTACT, PATENT AND INFUSING IVF PER ORDERS. PATIENT CONTINUES TO HAVE THROAT PAIN WHEN SWALLOWING. SAFETY MEASURES IN PLACE, CALL LIGHT WITHIN REACH, FALL PREVENTIONS IN PLACE. WILL CONTINUE TO MONITOR.
[2017-10-30] MEDS: PIPER/TAZO 2.25GM/D5W PREMIX 50 ML IV SCH ×2 (13:10→21:08)
--- NOTE | 2017-10-30 15:20 | NUR ---
PATIENT LYING IN BED SLEEPING, AROUSABLE BY VOICE. IV SITE IS LEAKING AND INFILTRATED. USING ASEPTIC TECHNIQUE, IV ON LEFT WRIST REMOVED WITH MINIMAL BLOOD AND LUMEN COMPLETELY INTACT. PATIENT TOLERATED WELL. NEW IV LINE INSERTED ON RIGHT UPPER ARM #20 ON FIRST ATTEMPT. IVF CONNECTED BACK TO PATIENT PER ORDERS. SAFETY MEASURES IN PLACE, CALL LIGHT WITHIN REACH, FALL PREVENTIONS IN PLACE. WILL CONTINUE TO MONITOR.
[2017-10-30 16:00] VITALS: BP 112/66
--- NOTE | 2017-10-30 17:25 | NUR ---
DR. SCOTT AT BEDSIDE REVIEWING PLAN OF CARE WITH PATIENT WITH FAMILY MEMBERS AT BEDSIDE. SAFETY MEASURES IN PLACE, CALL LIGHT WITHIN REACH. WILL CONTINUE TO MONITOR.
--- NOTE | 2017-10-30 18:39 | NUR ---
PATIENT SITTING IN BED TALKING WITH FAMILY MEMBERS AT BEDSIDE. NO DISTRESS NOTED. CONDITION UNCHANGED. SAFETY MEASURES IN PLACE, CALL LIGHT WITHIN REACH, FALL PREVENTIONS IN PLACE. WILL CONTINUE TO MONITOR.
--- NOTE | 2017-10-30 19:26 | NUR ---
GAVE REPORT TO SUSTAINABLE DEVELOPMENT POLICY ANALYST NURSE FOR CONTINUITY OF CARE. PATIENT IN STABLE CONDITION.
--- NOTE | 2017-10-30 19:27 | NUR ---
RECEIVED HANDOFF REPORT FROM AM RN. PATIENT A&OX3. PATIENT DENIES PAIN. IV SITE PATENT AND INTACT. NO SIGNS OR SYMPTOMS OF ACUTE DISTRESS NOTED. CALL LIGHT WITHIN REACH. WILL CONTINUE TO MONITOR.
[2017-10-30 20:00] VITALS: BP 138/65
[2017-10-30] MEDS ORDERED: methylPREDNISolone SS 40 MG/ML VIAL IVP SCH (21:00)
--- NOTE | 2017-10-30 21:15 | NUR ---
PM MEDS GIVEN WITH EDUCATION. REINFORCEMENT NEEDED. NO SIGNS OR SYMPTOMS OF ACUTE DISTRESS NOTED. SAFETY MEASURES ENSURED. CALL LIGHT WITHIN REACH. WILL CONTINUE TO MONITOR.
[2017-10-31] VITALS: BP 126/95
--- NOTE | 2017-10-31 02:45 | NUR ---
PATIENT RESTING IN BED. PATIENT DENIES PAIN. NO SIGNS OR SYMPTOMS OF ACUTE DISTRESS NOTED. CALL LIGHT WITHIN REACH. WILL CONTINUE TO MONITOR.
[2017-10-31 04:00] VITALS: BP 150/72
[2017-10-31] MEDS: DEXTROSE 5% 1,000 ML IV SCH ×2 (05:19→18:39)
[2017-10-31] MEDS: PIPER/TAZO 2.25GM/D5W PREMIX 50 ML IV SCH ×3 (05:38→21:00)
--- NOTE | 2017-10-31 07:26 | NUR ---
ENDORSED PLAN OF CARE TO AM RN. PATIENT IN STABLE CONDITION. SAFETY MEASURES ENSURED.
[2017-10-31] MEDS: IPRATROPIUM 0.02% 0.5 MG/2.5 ML NEBU INH SCH ×3 (07:27→19:18)
[2017-10-31] MEDS: ALBUTEROL 0.083% 2.5 MG/3 ML NEBU INH SCH ×3 (07:27→19:17)
--- NOTE | 2017-10-31 07:27 | NUR ---
RECEIVED REPORT FROM MATH PROFESSOR NURSE. PATIENT SLEEPING, AROUSABLE BY VOICE. IN STABLE CONDITION. NO DISTRESS NOTED. DENIES ANY PAIN. RESPIRATIONS EVEN, UNLABORED, ON ROOM AIR WITH O2 SAT AT 98%. AAOX3, CALM, COOPERATIVE, SKIN COLOR APPROPRIATE TO ETHNICITY, WARM TO TOUCH. HAS LEFT HAND SKIN TEAR, DRESSING IS DRY AND INTACT. WITT CATHETER IN PLACE, INTACT AND PATENT, DRAINING CLOUDY YELLOW URINE. LUNGS ARE DIMINISHED THROUGHOUT ALL LOBES. NO GTUBE IN PLACE. ABDOMEN SOFT, NON-DISTENDED. IV SITE IS INTACT, PATENT, AND INFUSING IVF PER ORDERS. REVIEWED PLAN OF CARE WITH PATIENT. PATIENT VERBALIZED UNDERSTANDING, REINFORCEMENT NEEDED. SAFETY MEASURES IN PLACE, CALL LIGHT WITHIN REACH, FALL PRECAUTIONS IN PLACE. WILL CONTINUE TO MONITOR.
[2017-10-31 07:30] LABS: CARBON DIOXIDE 25.6 mmol/L (21-32); CHLORIDE 108 mmol/L (98-107); CREATININE 1.2 mg/dL (0.7-1.3); GLUCOSE 128 mg/dL (74-106); POTASSIUM 3.6 mmol/L (3.5-5.1); SODIUM SERUM 142 mmol/L (136-145); UREA NITROGEN, BLOOD 21 mg/dL (7-18)
[2017-10-31] MEDS: BLOOD GLUCOSE MONITORING 1 DEV DEV FS SCH ×4 (07:30→21:31)
[2017-10-31 07:44] LABS: HEMATOCRIT 28.7 % (36-52); HEMOGLOBIN 9.1 g/dL (12.0-18.0); MEAN CORPUSCULAR HEMOGLOBIN 24 pg (27-31); MEAN CORPUSCULAR HGB CONC 32 g/dL (33-37); MEAN CORPUSCULAR VOLUME 77 fL (80-94); PLATELET COUNT (AUTO) 371 K/uL (140-450); RED BLOOD CELL COUNT(AUTO) 3.75 MIL/uL (4.20-6.10); RED CELL DISTRIBUTION WIDTH 19.7 % (11.6-13.7); WHITE BLOOD COUNT (AUTO) 22.3 K/uL (4.8-10.8)
[2017-10-31 08:00] VITALS: BP 108/65
[2017-10-31 08:13] LABS: LYMPHOCYTES % (MANUAL) 11 % (20-46); MONOCYTES % (MANUAL) 3 % (5-12)
--- NOTE | 2017-10-31 08:20 | NUR ---
ENDORSED TO NIGHT NURSE FOR CONTINUITY OF CARE. PT IN STABLE CONDITION.
--- NOTE | 2017-10-31 08:35 | NUR ---
RECEIVED BEDSIDE REPORT FROM NURSE FREEMAN HERNANDEZ, PT STABLE NO DISTRESS NOTED, WITT CATH IN PLACE, DRAINING YELLOW URINE, CALL LIGHT WITHIN REACH, WILL CONTINUE TO MONITOR. Addendum: 10/31/17 at 2146 by Liberty Bass RN WRONG TIME
[2017-10-31] MEDS ORDERED: predniSONE 20 MG TAB PO SCH (09:00)
[2017-10-31] MEDS: FERROUS SULFATE 300 MG/5 ML UDC GT SCH ×2 (09:04→21:31)
--- NOTE | 2017-10-31 09:16 | NUR ---
PATIENT SITTING IN BED WATCHING TV. NO DISTRESS NOTED. RESPIRATIONS EVEN, UNLABORED, ON ROOM AIR. DENIES ANY PAIN. PATIENT HAD MUCH BETTER APPETITE TODAY WITH 100% BREAKFAST EATEN AND ABLE TO TOLERATE IT. CONTINUES TO HAVE PAIN/SORE THROAT UPON SWALLOWING. SCHEDULED MEDICATIONS DUE GIVEN. PATIENT TOLERATED WELL WITHOUT ANY VOMITING. SAFETY MEASURES IN PLACE, CALL LIGHT WITHIN REACH. WILL CONTINUE TO MONITOR.
--- NOTE | 2017-10-31 10:15 | NUR ---
ASSISTED SCIENCE JOB TITLES IN CLEANING AND REPOSITIONING PATIENT. NO DISTRESS NOTED. DENIES ANY PAIN. SAFETY MEASURES IN PLACE, CALL LIGHT WITHIN REACH. WILL CONTINUE TO MONITOR.
[2017-10-31] MEDS: LACTOBACILLUS RHAMNOSUS GG 1 EACH CAP PO SCH (10:17)
[2017-10-31 12:00] VITALS: BP 131/69
--- NOTE | 2017-10-31 12:10 | NUR ---
PATIENT SLEEPING IN BED, AROUSABLE BY VOICE. NO DISTRESS NOTED. CONDITION UNCHANGED. SCHEDULED MEDICATIONS DUE GIVEN. SAFETY MEASURES IN PLACE, CALL LIGHT WITHIN REACH, FALL PREVENTIONS IN PLACE. WILL CONTINUE TO MONITOR.
--- NOTE | 2017-10-31 12:30 | NUR ---
DR. SCOTT AT BEDSIDE REVIEWING PLAN OF CARE WITH PATIENT. WILL CONTINUE TO MONITOR.
--- NOTE | 2017-10-31 14:13 | NUR ---
10/31/17 RD FOLLOW UP COMPLETED PLEASE REFER TO PROGRESS NOTES UNDER CARE ACTIVITY FOR ESTIMATED NUTRITIONAL NEEDS. 1. CONTINUE PUREE DIET WITH HONEY THICKENED LIQUIDS TOLERATED PER MD 2. ENCOURAGE INCREASED PO INTAKES -PT WITH BETTER APPETITE AND INCREASED PO INTAKES SINCE LAST RD VISIT. 3. RD TO FOLLOW-UP 3-5 DAYS, MODERATE RISK HETAL FITZGERALD, RD
--- NOTE | 2017-10-31 15:15 | NUR ---
CM NOTE CONCURRENT REVIEW FAXED TO [facility] / FAX# [phone], ATTN: ASHLEY #[phone]
--- NOTE | 2017-10-31 15:45 | NUR ---
TRIED CALLING DAUGHTER, ZEFERINO ROJO, TO LET HER KNOW THAT THE PATIENT IS BEING TRANSFERRED TO [facility]. DAUGHTER DID NOT TELEVISION MECHANIC AND HER MESSAGE BOX ON THE PHONE IS FULL. WILL CONTINUE TO TRY CALLING. Addendum: 10/31/17 at 2004 by Jaison Delgado RN DISREGARD NOTE ABOVE. WRONG TIME.
[2017-10-31 16:00] VITALS: BP 133/61
--- NOTE | 2017-10-31 16:12 | NUR ---
1400 MET WITH DAUGHTER ZEFERINO ROJO AT BEDSIDE WITH MARIO HERNANDEZ INTERPRETING. PER ZEFERINO SHE IS NOT LONGER ABLE TO CARE FOR PT AND NEEDS PT IN FACILITY VALVE PIPE IRRIGATOR. DISCUSSED THAT VALVE PIPE IRRIGATOR BEDS ARE NOT EASY TO FIND BUT WILL MAKE AN EFFORT AND FACILITY NEEDS TO BE CONTRACTED WITH INSURANCE. ZEFERINO ACKNOWLEDGED HER UNDERSTANDING. DISCUSSED WITH HER THAT WILL REQUEST THAT PT RECEIVE DYSPHAGIA THERAPY HE HAS HAD DIFFICULTY SWALLOWING AND HAS BEEN PLACED ON PUREE DIET. ADVISED HER TO DISCUSS WITH HER FATHER AND OTHER FAMILY MEMBERS WHAT PTS WISHES WOULD BE FOR FEEDING TUBE PLACEMENT IF NEEDED AND FOR RESUSCITATION. STATED SHE WILL DISCUSS WITH PT AND UNDERSTANDS THAT SNF BED MAYBE LIMITED. 1530 MET WITH GILDARDO FROM [facility] AND SHE HAS ACCEPTED THE PT FOR ADMISSION TO ROOM [address] UNDER DR VELIZ AND TO CALL REPORT TO [phone]. CALLED [facility] AND SET UP TRANSPORT FOR 8PM MARBLE SETTER PER [facility] AND AUTH# PER APRIL AT [facility] IS [id number]
--- NOTE | 2017-10-31 16:15 | NUR ---
TRIED CALLING DAUGHTER, ZEFERINO ROJO, TO LET HER KNOW THAT THE PATIENT IS BEING TRANSFERRED TO [facility]. DAUGHTER DID NOT IRRIGATION EQUIPMENT REMOVER AND HER MESSAGE BOX ON THE PHONE IS FULL. WILL CONTINUE TO TRY CALLING.
--- NOTE | 2017-10-31 17:00 | NUR ---
TRIED CALLING DAUGHTER, ZEFERINO ROJO, TO LET HER KNOW THAT THE PATIENT IS BEING TRANSFERRED TO [facility]. DAUGHTER DID NOT POOL MANAGER AND HER MESSAGE BOX ON THE PHONE IS FULL. WILL CONTINUE TO TRY CALLING.
--- NOTE | 2017-10-31 17:15 | NUR ---
PATIENT MADE AWARE THAT HE WAS BEING TRANSFERRED TO [facility] TONIGHT AROUND 0800 PM. PATIENT VERBALIZED UNDERSTANDING AND SHOWED SATISFACTION WITH THE SNF PLACEMENT. ANSWERED ALL OF PATIENT'S QUESTIONS REGARDING TRANSFER. WILL CONTINUE TO MONITOR.
[2017-10-31] MEDS: INSULIN LISPRO SLIDING SCALE 100 UNITS/ML VIAL SUBQ PRN ×2 (17:33→21:36)
--- NOTE | 2017-10-31 18:00 | NUR ---
TRIED CALLING DAUGHTER, ZEFERINO ROJO, TO LET HER KNOW THAT THE PATIENT IS BEING TRANSFERRED TO [facility]. DAUGHTER DID NOT BUSINESS SERVICES ANALYST AND HER MESSAGE BOX ON THE PHONE IS FULL.
--- NOTE | 2017-10-31 18:50 | NUR ---
CALLED [facility] AND GAVE REPORT TO NURSE SCARLETT. SCARLETT AWARE OF PATIENT'S CONDITION AND DISCHARGE INSTRUCTIONS FROM DR. CAMPOS. PATIENT TO BE TRANSFERRED TO [place] WITH IV ZOSYN X 10 DAYS AND CONTINUE MEDROL DOSE SOL DIRECTED. ANSWERED ALL OF SCARLETT'S QUESTIONS. VERBAL CONFIRMATION THAT SCARLETT AWARE OF PATIENT COMING TO [facility] SCHEDULED PICKUP TIME AT 0800 FROM [facility].
--- NOTE | 2017-10-31 19:30 | NUR ---
RECEIVED REPORT FROM AM NURSE. PT IS AA0X3, ON ROOM AIR. NO SIGNS OF ACUTE DISTRESS NOTED, RESPIRATIONS EVEN AND UNLABORED. SKIN COLOR APPROPRIATE TO ETHNICITY. IV ACCESS PATENT AND ASYMPTOMATIC SALINE LOCK. PLAN OF CARE DISCUSSED, PT VERBALIZED UNDERSTANDING. PT WILL BE DISCHARGED AND PICKED UP BY AMBULANCE, GOING TO DIFFERENT FACILITY, PT AWARE AND VERBALIZED UNDERSTANDING. BED IN LOW POSITION, BILATERAL HALF SIDE RAILS UP, CALL LIGHT WITHIN REACH, WILL CONTINUE TO MONITOR.
--- NOTE | 2017-10-31 19:35 | NUR ---
GAVE REPORT TO GIS SPECIALIST NURSE FOR CONTINUITY OF CARE. PATIENT IN STABLE CONDITION.
[2017-10-31 20:25] VITALS: BP 118/51
--- NOTE | 2017-10-31 20:35 | NUR ---
RECEIVED BEDSIDE REPORT FROM MARY MAURER, PT STABLE, NO DISTRESS NOTED, WITT IN PLACE DRAINING YELLOW URINE, CALL LIGHT WITHIN REACH, WILL CONTINUE TO MONITOR.
--- NOTE | 2017-10-31 20:40 | NUR ---
PT STATED THAT HE IS UNABLE TO SIGN D/C PAPER BECAUSE HE STATED THAT HE CAN NOT SEE, EXPLAINED TO HIM THE DISCHARGE TEACHING, PT STATED UNDERSTANDING, WILL CONTINUE TO MONITOR.
--- NOTE | 2017-10-31 21:00 | NUR ---
IV MEDICATION NOT GIVEN, PT IS SCHEDULED TO BE PICKED UP BY EMR, MEDICATION NOT AVAILABLE AT UNIT AT THIS MOMENT, PT STABLE, NO DISTRESS NOTED, CALL LIGHT WITHIN REACH, WILL CONTINUE TO MONITOR.
--- NOTE | 2017-10-31 21:31 | NUR ---
DUE MEDICATION GIVEN, PT STABLE, NO DISTRESS NOTED, SITTING ON CHAIR BY BEDSIDE, CALL LIGHT WITHIN REACH, WILL CONTINUE TO MONITOR.
--- NOTE | 2017-10-31 23:20 | NUR ---
PT LEFT UNIT ON GURNEY, NO DISTRESS NOTED, WITT AND IV IN PLACE. WRISTBAND AND BOX FOLDING MACHINE OPERATOR TAKEN OFF.
[2017-11-03] MEDS ORDERED: NACL 0.9% IRR 250 ML BOTTLE IR SCH (13:00)
== END 2017-10-31 23:20 | DRG 720 ==
LOC: MED 23:40 → MTU 10-25 01:42 → MIC 10-25 17:46 → MTU 10-28 12:45
PROVIDERS: ADMIT Internal Medicine; ATTEND Internal Medicine
PROC: 5A09357 Assistance with Respiratory Ventilation, Less than 24 Consecutive Hours, Continuous Positive Airway Pressure (ICD-10-PCS; principal; 2017-10-25)
PROC: 5A09357 Assistance with Respiratory Ventilation, Less than 24 Consecutive Hours, Continuous Positive Airway Pressure (ICD-10-PCS; 2017-10-26)
PROC: 5A09357 Assistance with Respiratory Ventilation, Less than 24 Consecutive Hours, Continuous Positive Airway Pressure (ICD-10-PCS; 2017-10-27)
DX: A41.9 Sepsis, unspecified organism (principal); J96.20 Acute and chronic respiratory failure, unspecified whether with hypoxia or hypercapnia; J18.9 Pneumonia, unspecified organism; N17.9 Acute kidney failure, unspecified; E87.0 Hyperosmolality and hypernatremia; J44.0 Chronic obstructive pulmonary disease with (acute) lower respiratory infection; N39.0 Urinary tract infection, site not specified; R64 Cachexia; K21.9 Gastro-esophageal reflux disease without esophagitis; G89.29 Other chronic pain; E78.5 Hyperlipidemia, unspecified; E87.6 Hypokalemia; R62.7 Adult failure to thrive; J44.1 Chronic obstructive pulmonary disease with (acute) exacerbation; N18.9 Chronic kidney disease, unspecified; N40.1 Benign prostatic hyperplasia with lower urinary tract symptoms; N13.8 Other obstructive and reflux uropathy; I12.9 Hypertensive chronic kidney disease with stage 1 through stage 4 chronic kidney disease, or unspecified chronic kidney disease; E87.1 Hypo-osmolality and hyponatremia; D64.9 Anemia, unspecified; M95.4 Acquired deformity of chest and rib; Z87.81 Personal history of (healed) traumatic fracture; Z90.49 Acquired absence of other specified parts of digestive tract; E44.1 Mild protein-calorie malnutrition
CPT/HCPCS: 36415; 36600; 51702; 71010; 76770; 80048; 80053; 81001; 82607; 82728; 82746; 82803; 82948; 83540; 83605; 83690; 83735; 83880; 84100; 84484; 85025; 85610; 87040; 87081; 87086; 87186; 92610; 93005; 94640; 94660; 96365; 97799; 99291; J1170; J1644; J1815; J1956; J2001; J2543; J2920; J2930; J3475; J3480; J7030; J7042; J7060; J7512; J7613; J7644; P9046; Q0092